=== PATIENT | male | born 1935 | race Caucasian/White ===

== ENCOUNTER → 2017-05-25 | Outpatient (CLI) | payer MEDICARE, OTHER ==
[~2017-05-25] MED LIST: ASPIR 8181 MG PO; ASPIRIN EC81 MG PO; AVODART0.5 MG PO; EYE DROPS OU; HYDROCHLOROTH12.5 MG PO; LATANOPROST 0.005% OU; LATANOPROST2.5 ML OP; LOSARTAN PO; LOSARTAN POTASS25 MG PO; MELOXICAM15 MG PO; MULTIVITAMINS PO; OXYBUTYNIN CHLOR5 MG PO; TAMSULOSIN HCL0.4 MG PO; TYLENOL WITH C1 EACH PO
--- NOTE | 2017-05-25 17:11 | Diagnostic Imaging Report ---
CORRECTION Corrected on: 05/25/2017; Dictated by: Marcelino Roberto M.D. on 05/25/2017 at 17:13 Electronically approved by: Marcelino Roberto M.D. on 05/25/2017 at 17:13 PROCEDURE:X-RAY ABDOMEN - KUB COMPARISON:[facility], DX, ABDOMEN-1VIEW (KUB), 10/21/2016, 8:05. INDICATIONS:CALCULUS OF KIDNEY FINDINGS: Nonobstructive bowel gas pattern. Stable 0.7 cm nonobstructing calculus in the superior pole of the right kidney. Stable cluster of calcific densities projecting in the inferior pole of the left kidney. No other radiopaque densities project over the renal shadows, expected course of the ureters or bladder. Stable pelvic vascular calcifications. No acute bony abnormalities. CONCLUSION: Stable bilateral nonobstructive renal stone burden. Marcelino Roberto M.D. Dictated by: Marcelino Roberto M.D. on 05/25/2017 at 17:11 Electronically approved by: Marcelino Roberto M.D. on 05/25/2017 at 17:11
== END ==
LOC: RAD 14:26
PROVIDERS: ATTEND Urology
DX: N20.0 Calculus of kidney (principal)
CPT/HCPCS: 74018

== ENCOUNTER → 2017-09-21 | Outpatient (CLI) | payer MEDICARE, OTHER ==
--- NOTE | 2017-09-21 15:21 | Diagnostic Imaging Report ---
PROCEDURE:X-RAY ABDOMEN - KUB COMPARISON:[facility], DX, ABDOMEN-1VIEW (KUB), 05/25/2017, 14:33. INDICATIONS:CALCULUS OF KIDNEY FINDINGS: There is a non-obstructed bowel-gas pattern. Stable 7 mm radiopaque density projecting over the superior to mid aspect of the right renal shadow. Stable cluster of calcific densities projecting in the inferior pole of the left renal shadow. No other radiopaque densities project over the renal shadows, expected course of ureters or bladder. Stable pelvic vascular calcifications. No acute bony abnormalities. CONCLUSION: Stable bilateral, nonobstructing renal stone burden Marcelino Roberto M.D. Dictated by: Marcelino Roberto M.D. on 09/21/2017 at 15:25 Electronically approved by: Marcelino Roberto M.D. on 09/21/2017 at 15:25
== END ==
LOC: RAD 14:34
PROVIDERS: ATTEND Urology
DX: N20.0 Calculus of kidney (principal)
CPT/HCPCS: 74018

== ENCOUNTER → 2018-01-29 | Outpatient (CLI) | payer MEDICARE, OTHER ==
--- NOTE | 2018-01-29 10:47 | Diagnostic Imaging Report ---
PROCEDURE:X-RAY ABDOMEN - KUB COMPARISON:KUB 09/21/17. INDICATIONS:CALCULUS OF KIDNEY FINDINGS: Stable 7 mm radiopaque density projecting over the superior to mid aspect of the right renal shadow. Stable cluster of calcific densities projecting in the inferior pole of the left renal shadow. No other calcifications project over the kidneys, expected ureteral course, or bladder. Stable pelvic phleboliths. Non obstructive bowel gas pattern. No acute bony abnormalities. CONCLUSION: Similar appearance of bilateral renal stones. Dictated by: JOLENE OLIVAS M.D. on 01/29/2018 at 10:56 Electronically approved by: JOLENE OLIVAS M.D. on 01/29/2018 at 10:56
== END ==
LOC: RAD 09:58
PROVIDERS: ATTEND Urology
DX: N20.0 Calculus of kidney (principal)
CPT/HCPCS: 74018

== ENCOUNTER → 2018-05-31 | Outpatient (CLI) | payer MEDICARE, OTHER ==
--- NOTE | 2018-05-31 17:21 | Diagnostic Imaging Report ---
Abdomen, two views dated 05/31/2018. History: Renal stones. Comparison: Not available Findings: A 7 mm stone overlies the right kidney. Several stones overlie the lower pole of the left kidney with the largest measuring 8.1 mm. The intestinal gas pattern is nonobstructive. There no masses. The osseous structures reveal mild degenerative change and osteopenia. IMPRESSION: Bilateral renal lithiasis. Signed by: Dr. Jamarcus Toth DO on 05/31/2018 5:18 PM
== END ==
LOC: RAD 14:43
PROVIDERS: ATTEND Urology
DX: N20.0 Calculus of kidney (principal)
CPT/HCPCS: 74018

== ENCOUNTER → 2018-07-03 | Day surgery (SDC) | payer MEDICARE, OTHER ==
[2018-06-28 15:46] LABS: BASOPHILS # (AUTO) 0.1 (0.0-0.1); BASOPHILS % 0.8 % (0.0-1.0); EOSINOPHILS # (AUTO) 0.2 (0.0-0.4); EOSINOPHILS % 2.2 % (0.0-6.0); HEMATOCRIT 43.3 % (38.2-49.6); HEMOGLOBIN 14.5 g/dL (14.0-18.0); LYMPHOCYTES # (AUTO) 2.5 (1.0-3.2); LYMPHOCYTES % 28.1 % (18.0-39.1); MEAN CORPUSCULAR HEMOGLOBIN 31.9 pg (28-32); MEAN CORPUSCULAR HGB CONC 33.5 g/dL (31-35); MEAN CORPUSCULAR VOLUME 95.2 fL (81-99); MONOCYTES # (AUTO) 1.1 (0.2-0.8); MONOCYTES % 11.9 % (4.4-11.3); NEUTROPHILS % 56.5 % (38.7-80.0); PLATELET COUNT 254 x10e3/uL (140-360); RED BLOOD COUNT 4.55 x10e6/uL (4.3-5.7)
--- NOTE | 2018-06-28 16:10 | Diagnostic Imaging Report ---
EXAMINATION: CHEST 2 VIEWS INDICATION: Preop. Chest pain. Stones. ^PER PROTOCOL ^[id number] ^1540 ^PRE ADMIT COMPARISON: None FINDINGS: TUBES and LINES: None. LUNGS: Lungs are well inflated. Lungs are clear. There is no evidence of pneumonia or pulmonary edema. PLEURA: No pleural effusion or pneumothorax. HEART AND MEDIASTINUM: The cardiomediastinal silhouette is unremarkable. BONES AND SOFT TISSUES: No acute osseous lesion. Soft tissues are unremarkable. UPPER ABDOMEN: No free air under the diaphragm. IMPRESSION: No acute thoracic abnormality. Signed by: Dr. Jason Mancuso M.D. on 06/28/2018 4:07 PM
[~2018-07-03] MED LIST changes: +AMLODIPINE BESYL5 MG PO; +BELLADONNA/OPIUM 60 MG SUPP PR ONE; +IOPAMIDOL 610MG/1ML 300 MG/ML VIAL IV ONE; +LIDOCAINE HCL 2% LOCAL INJ 5 ML SDV VIAL INJ ONE; +MIRALAX17 GM PO; +ONDANSETRON HCL INJ 2MG/ML 2ML 2 MG/ML VIAL ONE; +PIPER-TAZ 3.375 GM 50 ML ONE; +PROPOFOL IV EMULSION 10 MG/ML 20 ML VIAL ONE; +SEVOFLURANE INHAL SOLN 250 ML PEN BTL ONE; +VIT B12 PO; +VIT D PO; +VIT K2 PO
--- OUTSIDE RECORDS SUMMARY | 2018-07-03 05:14 | XMS REPORT | Clinical Summary ---
Author Author [facility] Address Unknown Phone Unavailable Care Team Providers Care Speed Belt Sander Tender Name Role Phone Tony Muñoz MD PCP Allergies Not on File Medications Not on file Active Problems Not on file Encounters Care Team Description Date Type Specialty Tony Muñoz MD Abdominal aortic aneurysm without rupture (HCC) 01/02/2018 Hospital Radiology Encounter Tony Muñoz MD Abdominal aortic aneurysm without rupture (HCC) (Primary Dx) 12/30/2017 Outside Orders Central Scheduling after 07/02/2017 Social History Date Tobacco Use Types Packs/Day Years Used Never Assessed Sex Assigned at Date Recorded Not on file Industry Job Start Date Occupation Not on file Not on file Not on file Travel End Travel History Travel Start No recent travel history available. Last Filed Vital Signs Not on file Plan of Treatment Not on file Procedures Comments Procedure Name Priority Date/Time Associated Diagnosis CT/CTA ABDOMEN & PELVIS Routine 01/02/2018 3:03 PM CDT POCT-CREATININE Routine 01/02/2018 2:33 PM CDT after 07/02/2017 Results * CTA abdomen & pelvis (01/02/2018 3:03 PM CDT) Narrative Performed At Addendum Begins [facility] REPORT STATUS:A Addendum: I reviewed the nonvascular findings and concur with Dr. Pardo's report. A 12 mm low-density lesion is noted in the lower pole of the right kidney that has characteristics consistent with a cyst. Signed: Kenny Baltazar MD Report Verified Date/Time:01/02/2018 16:59:41 Reading Location: [place] [address] Angio Body Reading Room Addendum Ends FINAL REPORT CT angiography of the abdominal aorta and pelvic arteries, 02 January 2018 INDICATION: This is a 82 year old male with abdominal aortic aneurysm presents for assessment. This study is performed in an attempt to avoid an invasive procedure. TECHNIQUE: Spiral acquisition before and during intravenous contrast administration using a GE multidetector CT scanner. Images were obtained before and during the dynamic passage of intravenous contrast material.Multi-planar 3-D volume-rendering reconstruction was performed using an independent workstation interactively by the interpreting physician as well as the 3-D specialist for optimal visualisation the abdominal aorta, pelvic arteries, and its proximal branches. Please refer to the contrast sheet scanned in the EPIC system for the amount and route of contrast given. This exam was performed according to our departmental dose-optimisation programme, which includes automated exposure control, adjustment of the mA and/or kV according to patient size and/or use of iterative reconstruction technique. Dose modulation, iterative reconstruction, and/or weight based adjustment of the mA/kV was utilized to reduce the radiation dose to as low as reasonably achievable. FINDINGS: VASCULAR: Calcification is seen at the aortic root, where visualised. In the descending thoracic aorta combination of calcific and noncalcific atherosclerosis is identified. In the distal descending thoracic aorta, the thickness of the noncalcific atheroma is at least 8 mm, image 44. Regarding the infrarenal abdominal aorta, the mesenteric level as combination of calcific and noncalcific atherosclerosis identified. The thickness of the noncalcific atheroma is approximately 6 mm at image 106. In the infrarenal abdominal aorta, mild aneurysmal dilation is identified, with associated atherosclerotic ulceration, representing a spectrum of underlying atherosclerosis. By multiplanar reformation, the maximum diameter is approximately 3.5 x 3.4 cm. The length of the aneurysmal dilation is at most 5 cm, and terminates at least 3 cm above the aortic bifurcation, and commences approximately 3 cm below the right renal artery. There is no evidence of acute aortic pathology, specifically, there is no dissection, intramural hematoma, or contained rupture. Quantitative dimensions of the abdominal aorta are as follows: 2.5 cm at the mesenteric segment; 2.3 cm at the renal segment; 3.5 x 3.4 cm at the mid infrarenal level; and 1.5 cm at the aortic bifurcation. 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 Similarly, severe stenosis/subtotal occlusion is seen at the proximal 3 to 4 cm of the SMA, however, remainder of the SMA as well as the hepatic and splenic arteries are enhanced by contrast indicating reconstitution by surrounding collaterals. Acuity of this finding is uncertain. Correlate clinically. The ERIC is prominent, thereby providing collateral levels to the more superior mesenteric arteries and measure up to 5 mm in diameter. Single left and right renal arteries identified. The left renal artery has eccentric nonobstructive calcific atherosclerosis identified. There is substantial calcific atherosclerosis seen at the takeoff of the left right renal artery, making accurate assessment limited. Remainder of the right renal artery is to be widely patent The common iliac arteries, bilaterally, are remarkable for calcific atherosclerosis, more so at the proximal left common iliac artery, at image 203. By multiplanar reformation, the minimum luminal diameter at this level is approximately 2.3 x 6.8 mm, that may suggest a moderate lesion. Thereafter, the remainder of the common iliac, external iliac, common femoral, and the visualised superficial femoral arteries are widely patent with only eccentric nonobstructive calcific atherosclerosis identified. NON-VASCULAR: The lung bases are unremarkable. Some dependent changes are identified. Atelectatic changes are seen in the right base, for example at image 45 of the left lower lobe. In the abdomen, the liver and spleen appears unremarkable. The liver edge is smooth. No abnormal enhancing structure is identified. The adrenal glands are not enlarged. The gallbladder and the pancreas is not remarkable. No acute renal pathology is seen and no hydronephrosis or perirenal fluid collections identified. Bilateral cortical scarring is noted. Renal cyst is identified in the lateral aspect of the right kidney, with no enhancement after contrast ministration indicating simple in nature. It measures 5.7 x 7.4 cm in diameter. A smaller cyst is also identified inferiorly. Bowel is not well assessed by CT angiography as enteric contrast is not given. No obvious bowel dilation is identified. Bilateral fat-containing inguinal hernia is identified. The prostate is prominent with calcification identified. The bladder appears unremarkable. No significant retroperitoneal adenopathy is identified.No free air free fluid seen in the abdomen and pelvis. No acute bony pathology is identified. Tiny sclerotic focus is identified in the left pelvic level, image 284, representing a bone island. CONCLUSIONS: 1.An infra-renal abdominal aortic aneurysm with maximum diameter of 3.5 x 3.4 cm is present as described above. There is no evidence of acute aortic pathology, specifically, there is no dissection, intramural hematoma, or contained rupture. In addition, in the descending thoracic aorta, protruding noncalcific atherosclerotic plaque is identified, furthermore, atherosclerotic ulceration is identified in the infrarenal abdominal aorta, for example in the proximal infrarenal level indicating a spectrum of underlying atherosclerosis. Quantitative dimension of the abdominal aorta are as noted. 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 The ERIC is widely patent. Status of the renal arteries as described above. 3.Other findings as described above. 4.An addendum will be dictated regarding the non-vascular findings by the [employer] Radiologists. Signed: Hossein Pardo MD Report Verified Date/Time:01/02/2018 15:31:50 Reading Location: [place] [address] Cardiology MRI Procedure Note Interface, External Ris In - 01/02/2018 5:01 PM CDT Addendum Begins REPORT STATUS:A Addendum: I reviewed the nonvascular findings and concur with Dr. Pardo's report. A 12 mm low-density lesion is noted in the lower pole of the right kidney that has characteristics consistent with a cyst. Signed: Kenny Baltazar MD Report Verified Date/Time: 01/02/2018 16:59:41 Reading Location: [place] [address] Angio Body Reading Room Addendum Ends FINAL REPORT CT angiography of the abdominal aorta and pelvic arteries, 02 January 2018 INDICATION: This is a 82 year old male with abdominal aortic aneurysm presents for assessment. This study is performed in an attempt to avoid an invasive procedure. TECHNIQUE: Spiral acquisition before and during intravenous contrast administration using a [employer] multidetector CT scanner. Images were obtained before and during the dynamic passage of intravenous contrast material. Multi-planar 3-D volume-rendering reconstruction was performed using an independent workstation interactively by the interpreting physician as well as the 3-D specialist for optimal visualisation the abdominal aorta, pelvic arteries, and its proximal branches. Please refer to the contrast sheet scanned in the EPIC system for the amount and route of contrast given. This exam was performed according to our departmental dose-optimisation programme, which includes automated exposure control, adjustment of the mA and/or kV according to patient size and/or use of iterative reconstruction technique. Dose modulation, iterative reconstruction, and/or weight based adjustment of the mA/kV was utilized to reduce the radiation dose to as low as reasonably achievable. FINDINGS: VASCULAR: Calcification is seen at the aortic root, where visualised. In the descending thoracic aorta combination of calcific and noncalcific atherosclerosis is identified. In the distal descending thoracic aorta, the thickness of the noncalcific atheroma is at least 8 mm, image 44. Regarding the infrarenal abdominal aorta, the mesenteric level as combination of calcific and noncalcific atherosclerosis identified. The thickness of the noncalcific atheroma is approximately 6 mm at image 106. In the infrarenal abdominal aorta, mild aneurysmal dilation is identified, with associated atherosclerotic ulceration, representing a spectrum of underlying atherosclerosis. By multiplanar reformation, the maximum diameter is approximately 3.5 x 3.4 cm. The length of the aneurysmal dilation is at most 5 cm, and terminates at least 3 cm above the aortic bifurcation, and commences approximately 3 cm below the right renal artery. There is no evidence of acute aortic pathology, specifically, there is no dissection, intramural hematoma, or contained rupture. Quantitative dimensions of the abdominal aorta are as follows: 2.5 cm at the mesenteric segment; 2.3 cm at the renal segment; 3.5 x 3.4 cm at the mid infrarenal level; and 1.5 cm at the aortic bifurcation. 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 Similarly, severe stenosis/subtotal occlusion is seen at the proximal 3 to 4 cm of the SMA, however, remainder of the SMA as well as the hepatic and splenic arteries are enhanced by contrast indicating reconstitution by surrounding collaterals. Acuity of this finding is uncertain. Correlate clinically. The ERIC is prominent, thereby providing collateral levels to the more superior mesenteric arteries and measure up to 5 mm in diameter. Single left and right renal arteries identified. The left renal artery has eccentric nonobstructive calcific atherosclerosis identified. There is substantial calcific atherosclerosis seen at the takeoff of the left right renal artery, making accurate assessment limited. Remainder of the right renal artery is to be widely patent The common iliac arteries, bilaterally, are remarkable for calcific atherosclerosis, more so at the proximal left common iliac artery, at image 203. By multiplanar reformation, the minimum luminal diameter at this level is approximately 2.3 x 6.8 mm, that may suggest a moderate lesion. Thereafter, the remainder of the common iliac, external iliac, common femoral, and the visualised superficial femoral arteries are widely patent with only eccentric nonobstructive calcific atherosclerosis identified. NON-VASCULAR: The lung bases are unremarkable. Some dependent changes are identified. Atelectatic changes are seen in the right base, for example at image 45 of the left lower lobe. In the abdomen, the liver and spleen appears unremarkable. The liver edge is smooth. No abnormal enhancing structure is identified. The adrenal glands are not enlarged. The gallbladder and the pancreas is not remarkable. No acute renal pathology is seen and no hydronephrosis or perirenal fluid collections identified. Bilateral cortical scarring is noted. Renal cyst is identified in the lateral aspect of the right kidney, with no enhancement after contrast ministration indicating simple in nature. It measures 5.7 x 7.4 cm in diameter. A smaller cyst is also identified inferiorly. Bowel is not well assessed by CT angiography as enteric contrast is not given. No obvious bowel dilation is identified. Bilateral fat-containing inguinal hernia is identified. The prostate is prominent with calcification identified. The bladder appears unremarkable. No significant retroperitoneal adenopathy is identified. No free air free fluid seen in the abdomen and pelvis. No acute bony pathology is identified. Tiny sclerotic focus is identified in the left pelvic level, image 284, representing a bone island. CONCLUSIONS: 1. An infra-renal abdominal aortic aneurysm with maximum diameter of 3.5 x 3.4 cm is present as described above. There is no evidence of acute aortic pathology, specifically, there is no dissection, intramural hematoma, or contained rupture. In addition, in the descending thoracic aorta, protruding noncalcific atherosclerotic plaque is identified, furthermore, atherosclerotic ulceration is identified in the infrarenal abdominal aorta, for example in the proximal infrarenal level indicating a spectrum of underlying atherosclerosis. Quantitative dimension of the abdominal aorta are as noted. 2. 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 The ERIC is widely patent. Status of the renal arteries as described above. 3. Other findings as described above. 4. An addendum will be dictated regarding the non-vascular findings by the [employer] Radiologists. Signed: Hossein Pardo MD Report Verified Date/Time: 01/02/2018 15:31:50 Reading Location: [facility] [address] Cardiology MRI Performing Organization Address City/State/Zipcode Phone Number GE [facility] * POC-Creatinine (01/02/2018 2:33 PM CDT) POC-Creatinine 1.1Comment: TESTED AT [facility] 0.6 - 1.3 mg/dL [facility] [address] [facility] [address] POC-EGFR 64 mL/min/1.73M2 [facility] Specimen Blood Performing Organization Address City/State/Zipcode Phone Number [facility] [address] [place] [address] [facility] after 07/02/2017 Insurance Payer Benefit Subscriber ID Type Phone Address Plan / Group MEDICARE MEDICARE A xxxxxxxxxxx Medicare B CIGNA - COMMERCIAL CIGNA xxxxxxxxxx Comm INDEMNITY
--- OUTSIDE RECORDS SUMMARY | 2018-07-03 05:16 | XMS REPORT ---
Author Author Tony Muñoz [facility] eClinicalWorks Address Unknown Phone Unavailable Care Team Providers Care Nurse Sane Name Role Phone Tony Muñoz Unavailable Allergies, Adverse Reactions, Alerts Substance Reaction Event Type N.K.D.A. Info Not Available Non Drug Allergy Encounters Encounter Location Date f/u review [place]. July 10, 2013 3 MTH FU/[facility] [place]. 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 Medications Medication Code System Code Instructions Start Date End Date Status Dosage Lisinopril-Hydrochlorothiazide [facility] [address]-67 10-12.5 MG Orally Once a day Active 1 tablet Atorvastatin Calcium [facility] 55164213390 20 Orally Once a day Active 1 tablet Latanoprost [facility] [address]-29 0.005 % Ophthalmic Once a day Active 1 drop into affected eye in the evening ASA Unknown 0 Oral Active 1 tab DiphenhydrAMINE HCl [facility] [address]-60 2 % Externally Three times a day October 16, 2013 Active as directed MethylPREDNISolone (Eugenio) MED[facility]AN [address]-13 4 mg Orally as directed October 16, 2013 Active as directed Social History Social History Element Qualifiers Date Reported Tobacco Use: . Are you a: current smoker October 16, 2013 Do you drink alcohol? . Status: No October 16, 2013 Family history Qualifier Description Comment Date Reported Father brain cancer October 16, 2013 Vital Signs Date/Time: October 16, 2013 Blood Pressure Systolic 128 mm Hg Height 65 in Weight 168.8 lbs Cardiac Monitoring Heart Rate 71 /min Temperature 98.0 F Blood Pressure Diastolic 70 mm Hg Summary Purpose eClinicalWorks Submission
--- OUTSIDE RECORDS SUMMARY | 2018-07-03 05:16 | XMS REPORT ---
Author Author Tony Muñoz [facility] eClinicalWorks Address Unknown Phone Unavailable Care Team Providers Care Porcelain Buildup Assistant Name Role Phone Tony Muñoz Unavailable Encounters Encounter Location Date Unknown [facility]. Dec 31, 2013 f/u review BW and DI [facility]. July 10, 2013 3 MTH FU/BLWK [facility]. October 16, 2013 Unknown [facility]. 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 Are you a: former smoker, Yes, Year Quit 2013Dec 31, 2013 Do you drink alcohol? . Status: No Dec 31, 2013 Summary Purpose eClinicalWorks Submission
--- OUTSIDE RECORDS SUMMARY | 2018-07-03 05:16 | XMS REPORT ---
Author Author Tony Muñoz Organization [employer] Address Unknown Phone Unavailable Care Team Providers Care Database Software Technician Name Role Phone Tony Muñoz CP Unavailable Allergies, Adverse Reactions, Alerts Substance Reaction Event Type Statin Myalgia Non Drug Allergy Problems Problem Type Condition Code Onset Dates Condition Status Problem Orthostatic hypotension 458.0 Active Problem Prostate cancer 185 Active Problem Elevated blood sugar 790.29 Active Problem Other hyperlipidemia E78.4 Active Problem Essential (primary) hypertension I10 Active Problem Benign prostatic hyperplasia without lower urinary tract symptoms N40.0 Active Problem Annual visit for general adult medical examination with abnormal findings Z00.01 Active Problem Malignant neoplasm of prostate C61 Active Problem Atherosclerosis of aorta I70.0 Active Problem Hyperglycemia, unspecified R73.9 Active Assessment History of tobacco use Z87.891 Active Assessment Screening for abdominal aortic aneurysm Z13.6 Active Assessment Atherosclerosis of aorta I70.0 Active Problem Essential hypertension, benign 401.1 Active Problem 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 Active Assessment Essential (primary) hypertension I10 Active Problem Other and unspecified hyperlipidemia 272.4 Active Problem Abdominal aneurysm without mention of rupture 441.4 Active Problem Other abnormal glucose 790.29 Active Medications Medication Code System Code Instructions Start Date End Date Status Dosage Amlodipine Besylate-Valsartan [facility] 50021365750 5-160 MG Orally Once a day Active 1 tablet Losartan Potassium [facility] 54245842915 50 MG Orally Once a day Inactive 1 tablet Latanoprost [facility] 75448791716 0.005 % Ophthalmic Once a day Active 1 drop into affected eye in the evening Amlodipine Besylate [facility] 58894702665 2.5 MG Orally Once a day Inactive 1 tablet Vital Signs Date/Time: June 19, 2017 Blood Pressure Systolic 138 mm Hg Height 65 in Weight 171 lbs BMI 28.45 Index Cardiac Monitoring Heart Rate 62 /min Temperature 97.5 F Blood Pressure Diastolic 80 mm Hg Results No Known Results Summary Purpose [employer]Works Submission
--- OUTSIDE RECORDS SUMMARY | 2018-07-03 05:16 | XMS REPORT ---
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
--- OUTSIDE RECORDS SUMMARY | 2018-07-03 05:16 | XMS REPORT ---
Author Author Tony Muñoz [facility] e[employer] Address Unknown Phone Unavailable Care Team Providers Care Bank Officer Name Role Phone Tony Muñoz Unavailable Encounters Encounter Location Date Unknown [facility]. Dec 31, 2013 refill request for Losartan Potassium 25 [facility]. Feb 24, 2014 resend losaran request [facility]. Feb 24, 2014 f/u review BW and DI [facility]. July 10, 2013 3 MTH FU/BLWK [facility]. October 16, 2013 Unknown [facility]. 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 Are you a: former smoker, Yes, Year Quit 2013Dec 31, 2013 Do you drink alcohol? . Status: No Dec 31, 2013 Summary Purpose [employer]ClinicalWorks Submission
--- OUTSIDE RECORDS SUMMARY | 2018-07-03 05:16 | XMS REPORT ---
Author Author Tony Muñoz [facility] e[employer] Address Unknown Phone Unavailable Care Team Providers Care Manager Delivery Name Role Phone Tony Muñoz CP Unavailable Allergies, Adverse Reactions, Alerts Substance Reaction Event Type Statin Myalgia Non Drug Allergy Problems Problem Type Condition Code Onset Dates Condition Status Problem Other and unspecified hyperlipidemia 272.4 Active Assessment Screening for AAA (abdominal aortic aneurysm) Z13.6 Active Problem Other abnormal glucose 790.29 Active Assessment Encounter for general adult medical examination with abnormal findings Z00.01 Active Problem Orthostatic hypotension 458.0 Active Problem Prostate cancer 185 Active Problem Elevated blood sugar 790.29 Active Problem Other hyperlipidemia E78.4 Active Problem Essential (primary) hypertension I10 Active Assessment Benign prostatic hyperplasia without lower urinary tract symptoms N40.0 Active Assessment Other hyperlipidemia E78.4 Active Problem Benign prostatic hyperplasia without lower urinary tract symptoms N40.0 Active Assessment Malignant neoplasm of prostate C61 Active Problem Annual visit for general adult medical examination with abnormal findings Z00.01 Active Problem Malignant neoplasm of prostate C61 Active Problem Atherosclerosis of aorta I70.0 Active Problem Hyperglycemia, unspecified R73.9 Active Assessment History of smoking Z87.891 Active Assessment Stenosis of right carotid artery I65.21 Active Assessment Atherosclerosis of aorta I70.0 Active Assessment Hyperglycemia, unspecified R73.9 Active Problem Essential hypertension, benign 401.1 Active Problem 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 Active Assessment Essential (primary) hypertension I10 Active Problem Abdominal aneurysm without mention of rupture 441.4 Active Medications Medication Code System Code Instructions Start Date End Date Status Dosage Losartan Potassium ND 50898826230 50 MG Orally Once a day Active 1 tablet Latanoprost ND 04144901388 0.005 % Ophthalmic Once a day Active 1 drop into affected eye in the evening Amlodipine Besylate ND 79068413024 2.5 MG Orally Once a day Active 1 tablet Cheratussin AC [facility] 61085094711 100-10 MG/5ML Orally every 6 hrs Active 5 ml Medrol [facility] 86877370887 4 MG Orally as directed Active as directed Vital Signs Date/Time: May 25, 2017 Blood Pressure Systolic 158 mm Hg Height 65 in Weight 174 lbs BMI 28.95 Index Cardiac Monitoring Heart Rate 70 /min Temperature 97.7 F Blood Pressure Diastolic 88 mm Hg Results No Known Results Summary Purpose [employer]ClinicalWorks Submission
--- OUTSIDE RECORDS SUMMARY | 2018-07-03 05:16 | XMS REPORT ---
Author Author Tony Muñoz [facility] e[employer] Address Unknown Phone Unavailable Care Team Providers Care Television And Radio Repairer Name Role Phone Tony Muñoz Unavailable Allergies, Adverse Reactions, Alerts Substance Reaction Event Type Statin Myalgia Non Drug Allergy Encounters Encounter Location Date Unknown [facility]. Dec 31, 2013 refill request for Losartan Potassium 25 [facility]. Feb 24, 2014 resend losaran request [facility]. Feb 24, 2014 lab orders [facility]. Mar 12, 2014 f/u review BW and DI [facility]. July 10, 2013 3 MTH FU/BLWK [facility]. October 16, 2013 Unknown [facility]. Dec 27, 2013 ear wash [facility]. Dec 31, 2013 lab orders [facility]. Mar 24, 2014 ISSUES [facility]. Dec 26, 2013 3 Month F/U [facility]. July 02, 2014 3 Month F/U [facility]. October 01, 2014 BW f/u high a1c [facility]. Apr 02, 2014 Unknown [facility]. 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 Active Assessment Essential hypertension, benign 401.1 Active Assessment Prostate cancer 185 Active Problem Elevated blood sugar 790.29 Active Problem Orthostatic hypotension 458.0 Active Problem Prostate cancer 185 Active Problem Abdominal aneurysm without mention of rupture 441.4 Active Problem Other abnormal glucose 790.29 Active Problem Essential hypertension, benign 401.1 Active Problem Other and unspecified hyperlipidemia 272.4 Active Medications Medication Code System Code Instructions Start Date End Date Status Dosage ASA Unknown 0 Oral Active 1 tab Latanoprost [facility] [address]-04 0.005 % Ophthalmic Once a day Active 1 drop into affected eye in the evening Losartan Potassium [facility] 13961676013 25 Orally Once a day Active 1 tablet Social History Social History Element Qualifiers Date Reported Tobacco Use: . Are you a: former smoker, Yes, Year Quit 2013October 01, 2014 Do you drink alcohol? . Status: No October 01, 2014 Vital Signs Date/Time: October 01, 2014 Blood Pressure Systolic 130 mm Hg Height 65 in Weight 170 lbs Cardiac Monitoring Heart Rate 60 /min Temperature 98 F Blood Pressure Diastolic 72 mm Hg Summary Purpose eClinicalWorks Submission
--- OUTSIDE RECORDS SUMMARY | 2018-07-03 05:16 | XMS REPORT ---
Author Author Tony Muñoz [facility] eClinicalWorks Address Unknown Phone Unavailable Care Team Providers Care Executive Officer Special Warfare Team Name Role Phone Tony Muñoz Unavailable Allergies, Adverse Reactions, Alerts Substance Reaction Event Type Statin Myalgia Non Drug Allergy Problems Problem Type Condition Code Onset Dates Condition Status Problem Essential hypertension, benign 401.1 Active Problem Elevated blood sugar 790.29 Active Problem Orthostatic hypotension 458.0 Active Problem Annual visit for general adult medical examination with abnormal findings Z00.01 Active Problem Essential (primary) hypertension I10 Active Problem Other hyperlipidemia E78.4 Active Problem Atherosclerosis of aorta I70.0 Active Problem Prostate cancer 185 Active Problem Hyperglycemia, unspecified R73.9 Active Problem Malignant neoplasm of prostate C61 Active Assessment Bilateral impacted cerumen H61.23 Active Problem 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 Active Problem Other abnormal glucose 790.29 Active Assessment Acute bacterial conjunctivitis of left eye H10.32 Active Problem Abdominal aneurysm without mention of rupture 441.4 Active Assessment Acute non-recurrent maxillary sinusitis J01.00 Active Problem Other and unspecified hyperlipidemia 272.4 Active Medications Medication Code System Code Instructions Start Date End Date Status Dosage Anucort-HC [facility] [address]-88 25 MG Rectal Twice a day Active 1 suppository Flonase [facility] [address]-56 50 MCG/ACT Nasally twice a day August 02, 2016 Active 1 spray in each nostril Aspir-81 [facility] [address]-26 81 MG Orally Once a day Active 1 tablet Tamsulosin HCl [facility] [address]-06 0.4 MG Orally daily Active as directed Tobramycin [facility] [address]-04 0.3 % Ophthalmic 4 times a day August 02, 2016 Active 1 drop into affected eye Latanoprost [facility] [address]-93 0.005 % Ophthalmic Once a day Active 1 drop into affected eye in the evening Zithromax Z-Eugenio [facility] [address]-09 250 MG Orally Once a day August 02, 2016 Active 2 tablets on the first day, then 1 tablet daily for 4 days Losartan Potassium [facility] 39650810856 25 Active TAKE ONE TABLET BY MOUTH DAILY Vital Signs Date/Time: August 02, 2016 Blood Pressure Systolic 148 mm Hg Height 65 in Weight 170 lbs BMI 28.29 Index Cardiac Monitoring Heart Rate 75 /min Temperature 98.2 F Blood Pressure Diastolic 80 mm Hg Results No Known Results Summary Purpose eClinicalWorks Submission
--- OUTSIDE RECORDS SUMMARY | 2018-07-03 05:16 | XMS REPORT ---
Author Author Tony Muñoz [facility] eClinicalWorks Address Unknown Phone Unavailable Care Team Providers Care Conventional Mortgage Underwriter Name Role Phone Tony Muñoz Unavailable Encounters Encounter Location Date Unknown [facility]. Dec 31, 2013 f/u review BW and DI [facility]. July 10, 2013 3 MTH FU/BLWK [facility]. October 16, 2013 Unknown [facility]. 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 Are you a: former smoker, Yes, Year Quit 2013Dec 31, 2013 Do you drink alcohol? . Status: No Dec 31, 2013 Summary Purpose eClinicalWorks Submission
--- OUTSIDE RECORDS SUMMARY | 2018-07-03 05:16 | XMS REPORT ---
Author Author Tony Muñoz [facility] eClinicalWorks Address Unknown Phone Unavailable Care Team Providers Care Paving And Surfacing Labourer Name Role Phone Tony Muñoz Unavailable Allergies, Adverse Reactions, Alerts Substance Reaction Event Type Statin Myalgia Non Drug Allergy Problems Problem Type Condition Code Onset Dates Condition Status Problem Other abnormal glucose 790.29 Active Problem Elevated blood sugar 790.29 Active Problem Orthostatic hypotension 458.0 Active Problem Essential (primary) hypertension I10 Active Problem Atherosclerosis of aorta I70.0 Active Problem Other hyperlipidemia E78.4 Active Problem Malignant neoplasm of prostate C61 Active Problem Prostate cancer 185 Active Problem Hyperglycemia, unspecified R73.9 Active Problem Annual visit for general adult medical examination with abnormal findings Z00.01 Active Assessment Essential (primary) hypertension I10 Active Problem Abdominal aneurysm without mention of rupture 441.4 Active Problem Essential hypertension, benign 401.1 Active Assessment Viral infection B34.9 Active Problem 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 Active Assessment Cough R05 Active Problem Other and unspecified hyperlipidemia 272.4 Active Medications Medication Code System Code Instructions Start Date End Date Status Dosage Medrol [facility] 89097011046 4 MG Orally as directed Active as directed Latanoprost [facility] 23756640885 0.005 % Ophthalmic Once a day Active 1 drop into affected eye in the evening Flonase [facility] 55979975108 50 MCG/ACT Nasally twice a day August 02, 2016 Active 1 spray in each nostril Zithromax Z-Eugenio [facility] 58102892287 250 MG Orally Once a day August 02, 2016 Active 2 tablets on the first day, then 1 tablet daily for 4 days Losartan Potassium [facility] 29230591704 50 MG Orally Once a day Active 1 tablet Cheratussin AC [facility] 63073481387 100-10 MG/5ML Orally every 6 hrs Active 5 ml Tobramycin [facility] 37502664870 0.3 % Ophthalmic 4 times a day August 02, 2016 Active 1 drop into affected eye Vital Signs Date/Time: Apr 27, 2017 Blood Pressure Systolic 150 mm Hg Height 65 in Weight 173 lbs BMI 28.79 Index Cardiac Monitoring Heart Rate 75 /min Temperature 97.8 F Blood Pressure Diastolic 80 mm Hg Results No Known Results Summary Purpose eClinicalWorks Submission
--- OUTSIDE RECORDS SUMMARY | 2018-07-03 05:16 | XMS REPORT ---
Author Author Tony Muñoz Organization [employer] Address Unknown Phone Unavailable Care Team Providers Care Senior Software Test Engineer Name Role Phone Tony Muñoz Unavailable Allergies [...]
--- OUTSIDE RECORDS SUMMARY | 2018-07-03 05:16 | XMS REPORT ---
Author Author Tony Muñoz [facility] eClinicalWorks Address Unknown Phone Unavailable Care Team Providers Care Blasting Contract Miner Name Role Phone Tony Muñoz Unavailable Encounters Encounter Location Date f/u review BW and DI [facility]. 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 Active Assessment Abdominal aneurysm without mention of rupture 441.4 Active Assessment Other abnormal glucose 790.29 Active Assessment Atherosclerosis of aorta 440.0 Active Problem Other and unspecified hyperlipidemia 272.4 Active Problem Abdominal aneurysm without mention of rupture 441.4 Active Problem Essential hypertension, benign 401.1 Active Assessment Essential hypertension, benign 401.1 Active Assessment Other and unspecified hyperlipidemia 272.4 Active Problem Other abnormal glucose 790.29 Active Problem 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 Active Medications Medication Code System Code Instructions Start Date End Date Status Dosage Latanoprost [facility] [address]-25 0.005 % Ophthalmic Once a day Active 1 drop into affected eye in the evening Lisinopril-Hydrochlorothiazide [facility] [address]-73 10-12.5 MG Orally Once a day Active 1 tablet Atorvastatin Calcium [facility] [address]-12 20 mg Orally Once a day July 10, 2013 Active 1 tablet Social History Social History Element Qualifiers Date Reported Tobacco Use: . Are you a: current smoker July 10, 2013 Do you drink alcohol? . Status: No July 10, 2013 Family history Qualifier Description Comment Date Reported Father brain cancer July 10, 2013 Vital Signs Date/Time: July 10, 2013 Blood Pressure Systolic 120 mm Hg Height 65 inches Weight 164 lbs Cardiac Monitoring Heart Rate 70 Beats per Minute Temperature 97.5 F Blood Pressure Diastolic 64 mm Hg Results Carotid artery Doppler US Summary Purpose eClinicalWorks Submission
--- OUTSIDE RECORDS SUMMARY | 2018-07-03 05:16 | XMS REPORT ---
Author Author Tony Muñoz Organization [employer] Address Unknown Phone Unavailable Care Team Providers Care Teacher Industrial Arts Name Role Phone Tony Muñoz CP Unavailable Allergies No Known Allergies Problems Problem [...] Date End Date Status Dosage Amlodipine Besylate-Valsartan [facility] 15948508027 5-160 MG Orally Once a day Inactive 1 tablet Amlodipine Besylate [facility] 93676515470 5 MG Orally Once a day Nov 14, 2017 Active 1 tablet Losartan Potassium [facility] 53626900047 50 MG Orally Once a day Nov 14, 2017 Active 1 tablet Results No Known Results Summary Purpose eClinicalWorks Submission
--- OUTSIDE RECORDS SUMMARY | 2018-07-03 05:16 | XMS REPORT ---
Author Author Tony Muñoz Organization [employer] Address Unknown Phone Unavailable Care Team Providers Care Snuff Maker Name Role Phone Tony Muñoz Unavailable Allergies [...] Instructions Start Date End Date Status Dosage Lipitor [facility] 83810223323 10 MG Orally Once a day June 23, 2017 Active 1 tablet Results No Known Results Summary Purpose eClinicalWorks Submission
--- OUTSIDE RECORDS SUMMARY | 2018-07-03 05:16 | XMS REPORT | Continuity of Care Document ---
Author Author [facility] Interface Address Unknown Phone Unavailable Problems Problem Status Onset Date Classification Date Reported Comments Source Essential hypertension, benign Active Problem 12/29/2017 [facility] Elevated blood sugar Active Problem 12/29/2017 [facility] Orthostatic hypotension Active Problem 12/29/2017 [facility] Essential hypertension Active Problem 12/29/2017 [facility] Other hyperlipidemia Active Problem 12/29/2017 [facility] Atherosclerosis of aorta Active Problem 12/29/2017 [facility] Prostate cancer Active Problem 12/29/2017 [facility] Hyperglycemia, unspecified Active Problem 12/29/2017 [facility] Malignant neoplasm of prostate Active Problem 12/29/2017 [facility] Bilateral impacted cerumen Active Diagnosis 09/19/2016 [facility] Nondependent tobacco use disorder Active Problem 12/29/2017 [facility] Other abnormal glucose Active Problem 12/29/2017 [facility] Acute bacterial conjunctivitis of left eye Active Diagnosis 09/19/2016 [facility] Abdominal aneurysm without mention of rupture Active Problem 12/29/2017 [facility] Acute non-recurrent maxillary sinusitis Active Diagnosis 09/19/2016 [facility] Other and unspecified hyperlipidemia Active Problem 12/29/2017 [facility] Benign prostatic hyperplasia without lower urinary tract symptoms Active Problem 12/29/2017 [facility] Screening for AAA Active Diagnosis 06/15/2017 [facility] Encounter for general adult medical examination with abnormal findings Active Diagnosis 06/15/2017 [facility] History of smoking Active Diagnosis 06/15/2017 [facility] Stenosis of right carotid artery Active Diagnosis 06/15/2017 [facility] Viral infection Active Diagnosis 05/18/2017 [facility] Cough Active Diagnosis 05/18/2017 [facility] History of tobacco use Active Diagnosis 09/19/2017 [facility] Screening for abdominal aortic aneurysm Active Diagnosis 09/19/2017 [facility] Dizziness Active Diagnosis 04/03/2014 [facility] Myalgia Active Diagnosis 04/03/2014 [facility] Cerumen impaction Active Diagnosis 04/03/2014 [facility] Atherosclerosis of aorta Active Diagnosis 07/18/2013 [facility] High calcium levels Active Diagnosis 01/07/2014 [facility] Hypercalcemia Active Diagnosis 01/07/2014 [facility] Bee sting Active Diagnosis 10/26/2013 [facility] URI Active Diagnosis 08/23/2015 [facility] UTI Active Diagnosis 08/23/2015 [facility] Excessive cerumen in both ear canals Active Diagnosis 08/27/2015 [facility] Impacted cerumen of left ear Active Diagnosis 08/27/2015 [facility] Other abnormal glucose Active Diagnosis 04/04/2015 [facility] BPH Active Diagnosis 01/06/2016 [facility] Abdominal bloating Active Diagnosis 01/06/2016 [facility] Prostatitis Active Diagnosis 03/01/2016 [facility] Hemorrhoids Active Diagnosis 03/01/2016 [facility] Medications Medication Details Route Status Patient Instructions Ordering Provider Order Date Source Amlodipine Besylate 1 tablet Orally Active 5 MG Orally Once a day [facility] 11/14/2017 [facility] Losartan Potassium 1 tablet Orally Active 50 MG Orally Once a day [facility] 11/14/2017 [facility] Lipitor 1 tablet Orally Active 10 MG Orally Once a day [facility] 06/23/2017 [facility] Flonase 1 spray in each nostril Nasally Active 50 MCG/ACT Nasally twice a day [facility] 08/02/2016 [facility] Tobramycin 1 drop into affected eye Ophthalmic Active 0.3 % Ophthalmic 4 times a day [facility] 08/02/2016 [facility] Zithromax Z-Eugenio 2 tablets on the first day, then 1 tablet daily for 4 days Orally Active 250 MG Orally Once a day [facility] 08/02/2016 [facility] Flonase 1 spray in each nostril Nasally Active 50 MCG/ACT Nasally twice a day [facility] 08/02/2016 [facility] Zithromax Z-Eugenio 2 tablets on the first day, then 1 tablet daily for 4 days Orally Active 250 MG Orally Once a day [facility] 08/02/2016 [facility] Tobramycin 1 drop into affected eye Ophthalmic Active 0.3 % Ophthalmic 4 times a day [facility] 08/02/2016 [facility] Losartan Potassium 1 tablet Orally Active 25 Orally Once a day [facility] 08/10/2015 [facility] Cipro 1 tablet Orally Active 500 mg Orally Twice a day [facility] 08/03/2015 [facility] DiphenhydrAMINE HCl as directed Externally Active 2 % Externally Three times a day [facility] 10/16/2013 [facility] MethylPREDNISolone (Eugenio) as directed Orally Active 4 mg Orally as directed [facility] 10/16/2013 [facility] Atorvastatin Calcium 1 tablet Orally Active 20 mg Orally Once a day [facility] 07/10/2013 [facility] Anucort-HC 1 suppository Rectal Active 25 MG Rectal Twice a day [facility] Aspir-81 1 tablet Orally Active 81 MG Orally Once a day [facility] Tamsulosin HCl as directed Orally Active 0.4 MG Orally daily [facility] Latanoprost 1 drop into affected eye in the evening Ophthalmic Active 0.005 % Ophthalmic Once a day [facility] Losartan Potassium TAKE ONE TABLET BY MOUTH DAILY NA Active 25 [facility] Amlodipine Besylate-Valsartan 1 tablet Orally Active 5-160 MG Orally Once a day [facility] Losartan Potassium 1 tablet Orally Active 50 MG Orally Once a day [facility] Latanoprost 1 drop into affected eye in the evening Ophthalmic Active 0.005 % Ophthalmic Once a day [facility] Amlodipine Besylate 1 tablet Orally Active 2.5 MG Orally Once a day [facility] Cheratussin AC 5 ml Orally Active 100-10 MG/5ML Orally every 6 hrs [facility] Medrol as directed Orally Active 4 MG Orally as directed [facility] Lisinopril-Hydrochlorothiazide 1 tablet Orally Active 10-12.5 MG Orally Once a day [facility] Losartan Potassium 1 tablet Orally Active 25 Orally Once a day [facility] ASA 1 tab Oral Active Oral [facility] Atorvastatin Calcium 1 tablet Orally Active 20 Orally Once a day [facility] Allergies, Adverse Reactions, Alerts Substance Category Reaction Severity Reaction type Status Date Reported Comments Source N.K.D.A. Adverse Reaction Info Not Available Adverse Reaction Active 10/16/2013 [facility] Statin Adverse Reaction Myalgia Adverse Reaction Active 06/19/2017 [facility] Immunizations Immunization Date Given Site Status Last Updated Comments Source Results Order Name Results Value Reference Range Date Interpretation Comments Source Vital Signs Vital Sign Value Date Comments Source Systolic (mm Hg) 138 06/19/2017 [facility] Height 65 06/19/2017 [facility] Weight 171 06/19/2017 [facility] Heart Rate 62 06/19/2017 [facility] Temperature Oral (F) 97.5 F 06/19/2017 [facility] Diastolic (mm Hg) 80 06/19/2017 [facility] Systolic (mm Hg) 158 05/25/2017 [facility] Height 65 05/25/2017 [facility] Weight 174 05/25/2017 [facility] Heart Rate 70 05/25/2017 [facility] Temperature Oral (F) 97.7 F 05/25/2017 [facility] Diastolic (mm Hg) 88 05/25/2017 [facility] Systolic (mm Hg) 150 04/27/2017 [facility] Height 65 04/27/2017 [facility] Weight 173 04/27/2017 [facility] Heart Rate 75 04/27/2017 [facility] Temperature Oral (F) 97.8 F 04/27/2017 [facility] Diastolic (mm Hg) 80 04/27/2017 [facility] Systolic (mm Hg) 148 08/02/2016 [facility] Height 65 08/02/2016 [facility] Weight 170 08/02/2016 [facility] Heart Rate 75 08/02/2016 [facility] Temperature Oral (F) 98.2 F 08/02/2016 [facility] Diastolic (mm Hg) 80 08/02/2016 [facility] Systolic (mm Hg) 152 02/24/2016 [facility] Height 65 02/24/2016 [facility] Weight 175 02/24/2016 [facility] Heart Rate 63 02/24/2016 [facility] Temperature Oral (F) 97.5 F 02/24/2016 [facility] Diastolic (mm Hg) 80 02/24/2016 [facility] Systolic (mm Hg) 140 11/17/2015 [facility] Height 65 11/17/2015 [facility] Weight 173 11/17/2015 [facility] Heart Rate 66 11/17/2015 [facility] Temperature Oral (F) 97.9 F 11/17/2015 [facility] Diastolic (mm Hg) 90 11/17/2015 [facility] Systolic (mm Hg) 140 08/10/2015 [facility] Height 65 08/10/2015 [facility] Weight 166 08/10/2015 [facility] Heart Rate 70 08/10/2015 [facility] Temperature Oral (F) 98 F 08/10/2015 [facility] Diastolic (mm Hg) 90 08/10/2015 [facility] Systolic (mm Hg) 142 08/03/2015 [facility] Height 65 08/03/2015 [facility] Weight 167 08/03/2015 [facility] Heart Rate 48 08/03/2015 [facility] Temperature Oral (F) 98.3 F 08/03/2015 [facility] Diastolic (mm Hg) 70 08/03/2015 [facility] Systolic (mm Hg) 128 05/27/2015 [facility] Height 65 05/27/2015 [facility] Weight 171 05/27/2015 [facility] Heart Rate 64 05/27/2015 [facility] Temperature Oral (F) 97.6 F 05/27/2015 [facility] Diastolic (mm Hg) 86 05/27/2015 [facility] Systolic (mm Hg) 130 10/01/2014 [facility] Height 65 10/01/2014 [facility] Weight 170 10/01/2014 [facility] Heart Rate 60 10/01/2014 [facility] Temperature Oral (F) 98 F 10/01/2014 [facility] Diastolic (mm Hg) 72 10/01/2014 [facility] Systolic (mm Hg) 134 12/31/2013 [facility] Height 65 12/31/2013 [facility] Weight 172 12/31/2013 [facility] Heart Rate 62 12/31/2013 [facility] Temperature Oral (F) 98.1 F 12/31/2013 [facility] Diastolic (mm Hg) 68 12/31/2013 [facility] Systolic (mm Hg) 118 12/26/2013 [facility] Height 65 12/26/2013 [facility] Weight 168.4 12/26/2013 [facility] Heart Rate 63 12/26/2013 [facility] Temperature Oral (F) 98.5 F 12/26/2013 [facility] Diastolic (mm Hg) 58 12/26/2013 [facility] Systolic (mm Hg) 128 10/16/2013 [facility] Height 65 10/16/2013 [facility] Weight 168.8 10/16/2013 [facility] Heart Rate 71 10/16/2013 [facility] Temperature Oral (F) 98.0 F 10/16/2013 [facility] Diastolic (mm Hg) 70 10/16/2013 [facility] Systolic (mm Hg) 120 07/10/2013 [facility] Height 65 07/10/2013 [facility] Weight 164 07/10/2013 [facility] Heart Rate 70 07/10/2013 [facility] Temperature Oral (F) 97.5 F 07/10/2013 [facility] Diastolic (mm Hg) 64 07/10/2013 [facility] Encounters Location Location Details Encounter Type Encounter Number Reason For Visit Attending Provider ADM Date DC Date Status Source [facility]. f/u review BW and DI [id number] 07/10/2013 07/10/2013 [facility]. f/u review BW and DI [id number] 07/10/2013 07/10/2013 [facility], [facility]. f/u review BW and DI [id number] 07/10/2013 07/10/2013 [facility]. f/u review BW and DI [id number] 07/10/2013 07/10/2013 [facility], [facility]. f/u review BW and DI [id number] 07/10/2013 07/10/2013 [facility]. f/u review BW and DI [id number] 07/10/2013 07/10/2013 [facility], [facility]. f/u review BW and DI [id number] 07/10/2013 07/10/2013 [facility], [facility]. f/u review BW and DI [id number] 07/10/2013 07/10/2013 [facility], [facility]. f/u review BW and DI [id number] 07/10/2013 07/10/2013 [facility], [facility]. f/u review BW and DI [id number] 07/10/2013 07/10/2013 [facility], [facility]. f/u review BW and DI [id number] 07/10/2013 07/10/2013 [facility], [facility]. f/u review BW and DI [id number] 07/10/2013 07/10/2013 [facility], [facility]. f/u review BW and DI [id number] 07/10/2013 07/10/2013 [facility], [facility]. f/u review BW and DI [id number] 07/10/2013 07/10/2013 [facility], [facility]. f/u review BW and DI [id number] 07/10/2013 07/10/2013 [facility], [facility]. f/u review BW and DI [id number] 07/10/2013 07/10/2013 [facility] f/u review and DI [id number] 07/10/2013 07/10/2013 [facility] 3 MTH FU/BLWK [id number] 10/16/2013 10/16/2013 [facility] 3 MTH FU/BLWK [id number] 10/16/2013 10/16/2013 [facility] 3 MTH FU/BLWK [id number] 10/16/2013 10/16/2013 [facility] 3 MTH FU/BLWK [id number] 10/16/2013 10/16/2013 [facility] 3 MTH FU/BLWK [id number] 10/16/2013 10/16/2013 [facility] 3 MTH FU/BLWK [id number] 10/16/2013 10/16/2013 [facility] 3 MTH FU/BLWK [id number] 10/16/2013 10/16/2013 [facility] 3 MTH FU/BLWK [id number] 10/16/2013 10/16/2013 [facility] 3 MTH FU/BLWK [id number] 10/16/2013 10/16/2013 [facility] 3 MTH FU/BLWK [id number] 10/16/2013 10/16/2013 [facility] 3 MTH FU/BLWK [id number] 10/16/2013 10/16/2013 [facility] 3 MTH FU/BLWK [id number] 10/16/2013 10/16/2013 [facility] 3 MTH FU/BLWK [id number] 10/16/2013 10/16/2013 [facility] 3 MTH FU/BLWK [id number] 10/16/2013 10/16/2013 [facility] 3 MTH FU/BLWK [id number] 10/16/2013 10/16/2013 [facility] 3 MTH FU/BLWK [id number] 10/16/2013 10/16/2013 [facility] ISSUES [id number] 12/26/2013 12/26/2013 [facility] ISSUES [id number] 12/26/2013 12/26/2013 [facility] ISSUES [id number] 12/26/2013 12/26/2013 [facility], [facility]. ISSUES [id number] 12/26/2013 12/26/2013 [facility], [facility]. ISSUES [id number] 12/26/2013 12/26/2013 [facility], [facility]. ISSUES [id number] 12/26/2013 12/26/2013 [facility], [facility]. ISSUES [id number] 12/26/2013 12/26/2013 [facility], [facility]. ISSUES [id number] 12/26/2013 12/26/2013 [facility], [facility]. ISSUES [id number] 12/26/2013 12/26/2013 [facility], [facility]. ISSUES [id number] 12/26/2013 12/26/2013 [facility], [facility]. ISSUES [id number] 12/26/2013 12/26/2013 [facility], [facility]. Unknown [id number] 12/27/2013 12/27/2013 [facility], [facility]. Unknown [id number] 12/27/2013 12/27/2013 [facility], [facility]. Unknown [id number] 12/27/2013 12/27/2013 [facility] Unknown [id number] 12/27/2013 12/27/2013 [facility] Unknown [id number] 12/27/2013 12/27/2013 [facility] Unknown [id number] 12/27/2013 12/27/2013 [facility] Unknown [id number] 12/27/2013 12/27/2013 [facility] Unknown [id number] 12/27/2013 12/27/2013 [facility] Unknown [id number] 12/27/2013 12/27/2013 [facility] Unknown [id number] 12/27/2013 12/27/2013 [facility] Unknown [id number] 12/27/2013 12/27/2013 [facility] Unknown [id number] 12/27/2013 12/27/2013 [facility] Unknown [id number] 12/27/2013 12/27/2013 [facility] Unknown [id number] 12/27/2013 12/27/2013 [facility]. Unknown [id number] 12/27/2013 12/27/2013 [facility]. ear wash [id number] 12/31/2013 12/31/2013 [facility]. ear wash [id number] 12/31/2013 12/31/2013 [facility]. ear wash [id number] 12/31/2013 12/31/2013 [facility]. ear wash [id number] 12/31/2013 12/31/2013 [facility]. ear wash [id number] 12/31/2013 12/31/2013 [facility]. ear wash [id number] 12/31/2013 12/31/2013 [facility]. ear wash [id number] 12/31/2013 12/31/2013 [facility]. ear wash [id number] 12/31/2013 12/31/2013 [facility]. ear wash [id number] 12/31/2013 12/31/2013 [facility]. ear wash [id number] 12/31/2013 12/31/2013 [facility], [facility]. ear wash [id number] 12/31/2013 12/31/2013 [facility], [facility]. Unknown [id number] 12/31/2013 12/31/2013 [facility], [facility]. Unknown [id number] 12/31/2013 12/31/2013 [facility], [facility]. Unknown [id number] 12/31/2013 12/31/2013 [facility], [facility]. Unknown [id number] 12/31/2013 12/31/2013 [facility], [facility]. Unknown [id number] 12/31/2013 12/31/2013 [facility], [facility]. Unknown [id number] 12/31/2013 12/31/2013 [facility], [facility]. Unknown [id number] 12/31/2013 12/31/2013 [facility], [facility]. Unknown [id number] 12/31/2013 12/31/2013 [facility], [facility]. Unknown [id number] 12/31/2013 12/31/2013 [facility], [facility]. Unknown [id number] 12/31/2013 12/31/2013 [facility]. Unknown [id number] 12/31/2013 12/31/2013 [facility]. Unknown [id number] 12/31/2013 12/31/2013 [facility]. Unknown [id number] 12/31/2013 12/31/2013 [facility]. Unknown [id number] 12/31/2013 12/31/2013 [facility]. Unknown [id number] 12/31/2013 12/31/2013 [facility]. refill request for Losartan Potassium 25 [id number] 02/24/2014 02/24/2014 [facility]. refill request for Losartan Potassium 25 [id number] 02/24/2014 02/24/2014 [facility]. refill request for Losartan Potassium 25 [id number] 02/24/2014 02/24/2014 [facility]. refill request for Losartan Potassium 25 [id number] 02/24/2014 02/24/2014 [facility]. refill request for Losartan Potassium 25 [id number] 02/24/2014 02/24/2014 [facility]. refill request for Losartan Potassium 25 [id number] 02/24/2014 02/24/2014 [facility]. resend jayleenmian request [id number] 02/24/2014 02/24/2014 [facility]. resend fabi request [id number] 02/24/2014 02/24/2014 [facility]. resend fabi request [id number] 02/24/2014 02/24/2014 [facility] [id number] 02/24/2014 02/24/2014 [facility]. [facility] [id number] 02/24/2014 02/24/2014 [facility]. [facility] [id number] 02/24/2014 02/24/2014 [facility]. refill request for Losartan Potassium 25 [id number] 02/24/2014 02/24/2014 [facility]. refill request for Losartan Potassium 25 [id number] 02/24/2014 02/24/2014 [facility]. refill request for Losartan Potassium 25 [id number] 02/24/2014 02/24/2014 [facility]. refill request for Losartan Potassium 25 [id number] 02/24/2014 02/24/2014 [facility]. refill request for Losartan Potassium 25 [id number] 02/24/2014 02/24/2014 [facility]. refill request for Losartan Potassium 25 [id number] 02/24/2014 02/24/2014 [facility]. refill request for Losartan Potassium 25 [id number] 02/24/2014 02/24/2014 [facility]. resend fabi request [id number] 02/24/2014 02/24/2014 [facility]. resend fabi request [id number] 02/24/2014 02/24/2014 [facility]. resend fabi request [id number] 02/24/2014 02/24/2014 [facility]. resend fabi request [id number] 02/24/2014 02/24/2014 [facility]. resend fabi request [id number] 02/24/2014 02/24/2014 [facility]. resend fabi request [id number] 02/24/2014 02/24/2014 [facility], [facility]. resannabel mcmillan [id number] 02/24/2014 02/24/2014 [facility], [facility]. lab orders [id number] 03/12/2014 03/12/2014 [facility]. lab orders [id number] 03/12/2014 03/12/2014 [facility]. lab orders [id number] 03/12/2014 03/12/2014 [facility]. lab orders [id number] 03/12/2014 03/12/2014 [facility]. lab orders [id number] 03/12/2014 03/12/2014 [facility]. lab orders [id number] 03/12/2014 03/12/2014 [facility]. lab orders [id number] 03/12/2014 03/12/2014 [facility]. lab orders [id number] 03/12/2014 03/12/2014 [facility]. lab orders [id number] 03/12/2014 03/12/2014 [facility]. lab orders [id number] 03/12/2014 03/12/2014 [facility], [facility]. lab orders [id number] 03/12/2014 03/12/2014 [facility], [facility]. lab orders [id number] 03/24/2014 03/24/2014 [facility], [facility]. lab orders [id number] 03/24/2014 03/24/2014 [facility], [facility]. lab orders [id number] 03/24/2014 03/24/2014 [facility], [facility]. lab orders [id number] 03/24/2014 03/24/2014 [facility], [facility]. lab orders [id number] 03/24/2014 03/24/2014 [facility], [facility]. lab orders [id number] 03/24/2014 03/24/2014 [facility], [facility]. lab orders [id number] 03/24/2014 03/24/2014 [facility]. lab orders [id number] 03/24/2014 03/24/2014 [facility], [facility]. lab orders [id number] 03/24/2014 03/24/2014 [facility], [facility]. lab orders [id number] 03/24/2014 03/24/2014 [facility]. lab orders [id number] 03/24/2014 03/24/2014 [facility]. BW f/u high a1c [id number] 04/02/2014 04/02/2014 [facility]. BW f/u high a1c [id number] 04/02/2014 04/02/2014 [facility]. BW f/u high a1c [id number] 04/02/2014 04/02/2014 [facility]. BW f/u high a1c [id number] 04/02/2014 04/02/2014 [facility]. BW f/u high a1c [id number] 04/02/2014 04/02/2014 [facility]. BW f/u high a1c [id number] 04/02/2014 04/02/2014 [facility]. BW f/u high a1c [id number] 04/02/2014 04/02/2014 [facility]. BW f/u high a1c [id number] 04/02/2014 04/02/2014 [facility]. Unknown [id number] 06/25/2014 06/25/2014 [facility] Unknown [id number] 06/25/2014 06/25/2014 [facility] Unknown [id number] 06/25/2014 06/25/2014 [facility] Unknown [id number] 06/25/2014 06/25/2014 [facility] Unknown [id number] 06/25/2014 06/25/2014 [facility] Unknown [id number] 06/25/2014 06/25/2014 [facility] Unknown [id number] 06/25/2014 06/25/2014 [facility] Unknown [id number] 06/25/2014 06/25/2014 [facility] 3 Month F/U [id number] 07/02/2014 07/02/2014 [facility] 3 Month F/U [id number] 07/02/2014 07/02/2014 [facility] 3 Month F/U [id number] 07/02/2014 07/02/2014 [facility] 3 Month F/U [id number] 07/02/2014 07/02/2014 [facility] 3 Month F/U [id number] 07/02/2014 07/02/2014 [facility] 3 Month F/U [id number] 07/02/2014 07/02/2014 [facility] 3 Month F/U [id number] 07/02/2014 07/02/2014 [facility] 3 Month F/U [id number] 07/02/2014 07/02/2014 [facility] 3 Month F/U [id number] 10/01/2014 10/01/2014 [facility] 3 Month F/U [id number] 10/01/2014 10/01/2014 [facility] 3 Month F/U [id number] 10/01/2014 10/01/2014 [facility] 3 Month F/U [id number] 10/01/2014 10/01/2014 [facility] 3 Month F/U [id number] 10/01/2014 10/01/2014 [facility] 3 Month F/U [id number] 10/01/2014 10/01/2014 [facility], [facility]. 3 Month F/U [id number] 10/01/2014 10/01/2014 [facility]. 3 Month F/U [id number] 10/01/2014 10/01/2014 [facility]. lab orders [id number] 04/03/2015 04/03/2015 [facility]. lab orders [id number] 04/03/2015 04/03/2015 [facility]. lab orders [id number] 04/03/2015 04/03/2015 [facility]. lab orders [id number] 04/03/2015 04/03/2015 [facility]. lab orders [id number] 04/03/2015 04/03/2015 [facility]. lab orders [id number] 04/03/2015 04/03/2015 [facility]. lab orders [id number] 04/03/2015 04/03/2015 [facility]. right ear wash [id number] 05/27/2015 05/27/2015 [facility]. right ear wash [id number] 05/27/2015 05/27/2015 [facility]. right ear wash [id number] 05/27/2015 05/27/2015 [facility]. Refill [id number] 07/30/2015 07/30/2015 [facility]. Refill [id number] 07/30/2015 07/30/2015 [facility]. Refill [id number] 07/30/2015 07/30/2015 [facility]. Refill [id number] 07/30/2015 07/30/2015 [facility]. Refill [id number] 07/30/2015 07/30/2015 [facility]. Refill [id number] 07/30/2015 07/30/2015 [facility]. Sick Visit [id number] 08/03/2015 08/03/2015 [facility]. Sick Visit [id number] 08/03/2015 08/03/2015 [facility]. Sick Visit [id number] 08/03/2015 08/03/2015 [facility]. Sick Visit [id number] 08/03/2015 08/03/2015 [facility], [facility]. 1 week f;u [id number] 08/10/2015 08/10/2015 [facility], [facility]. 1 week f;u [id number] 08/10/2015 08/10/2015 [facility], [facility]. 1 week f;u [id number] 08/10/2015 08/10/2015 [facility], [facility]. 1 week f;u [id number] 08/10/2015 08/10/2015 [facility], [facility]. 1 week f;u [id number] 08/10/2015 08/10/2015 [facility], [facility]. stomach swelling [id number] 11/17/2015 11/17/2015 [facility]. stomach swelling [id number] 11/17/2015 11/17/2015 [facility], [facility]. f/u [id number] 02/24/2016 02/24/2016 [facility] Procedures Procedure Code Date Perfomer Comments Source
--- OUTSIDE RECORDS SUMMARY | 2018-07-03 05:17 | XMS REPORT ---
Author Author Tony Muñoz [facility] eClinicalWorks Address Unknown Phone Unavailable Care Team Providers Care Riveter Portable Machine Name Role Phone Tony Muñoz Unavailable Allergies, Adverse Reactions, Alerts Substance Reaction Event Type Statin Myalgia Non Drug Allergy Encounters Encounter Location Date Unknown [facility]. Dec 31, 2013 refill request for Losartan Potassium 25 [facility]. Feb 24, [address] [facility]. Feb 24, [address] [facility] Mar 12, 2014 f/u review BW and DI [facility]. July 10, 2013 3 MTH FU/BLWK [facility]. October 16, [address] [facility]. Dec 27, [address] [facility]. Dec 31, [address] [facility]. Mar 24, [address] [facility]. Dec 26, 2013 1 week f;u [facility]. August 10, [address] [facility]. August 03, [address] [facility]. Apr 03, [address] [facility]. July 30, 2015 3 Month F/U [facility]. July 02, 2014 3 Month F/U [facility]. October 01, 2014 BW f/u high a1c [facility]. Apr 02, [address] [facility]. June 25, [address] [facility]. May 27, 2015 Problems Problem Type Condition ICD-9 Code Onset [...] Malignant neoplasm of prostate C61 Active Assessment Essential (primary) hypertension I10 Active Problem 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 Active Problem Other abnormal glucose 790.29 Active Assessment Excessive cerumen in both ear canals H61.23 Active Problem Abdominal aneurysm without mention of rupture 441.4 Active Assessment Impacted cerumen of left ear H61.22 Active Problem Other and unspecified hyperlipidemia 272.4 Active Medications Medication Code System Code Instructions Start Date End Date Status Dosage Losartan Potassium [employer] 52582930730 25 Orally Once a day Active 1 tablet [facility] [address]-34 81 MG Orally Once a day Active 1 tablet Latanoprost [employer] [address]-65 0.005 % Ophthalmic Once a day Active 1 drop into affected eye in the evening Social History Social History Element Qualifiers Date Reported Tobacco Use: . Are you a: former smoker, Yes, Year Quit 2013August 10, 2015 Do you drink alcohol? . Status: No August 10, 2015 Family history Qualifier Description Comment Date Reported Maternal Grandmother Comment not available August 10, 2015 Paternal Grandmother Comment not available August 10, 2015 Siblings Comment not available August 10, 2015 Maternal Grandfather Comment not available August 10, 2015 Children Comment not available August 10, 2015 Father brain cancer August 10, 2015 Paternal Grandfather Comment not available August 10, 2015 Mother Comment not available August 10, 2015 Other: Comment not available August 10, 2015 Vital Signs Date/Time: May 27, 2015 Blood Pressure Systolic 128 mm Hg Height 65 in Weight 171 lbs Cardiac Monitoring Heart Rate 64 /min Temperature 97.6 F Blood Pressure Diastolic 86 mm Hg Summary Purpose eClinicalWorks Submission
--- OUTSIDE RECORDS SUMMARY | 2018-07-03 05:17 | XMS REPORT ---
Author Author Tony Muñoz [facility] e[employer] Address Unknown Phone Unavailable Care Team Providers Care Primer Charging Tool Setter Name Role Phone Tony Muñoz Unavailable Allergies, Adverse Reactions, Alerts Substance Reaction Event Type Statin Myalgia Non Drug Allergy Encounters Encounter Location Date Unknown [facility]. Dec 31, 2013 refill request for Losartan Potassium 25 [facility]. Feb 24, 2014 resend losaran request [facility]. Feb 24, 2014 lab orders [facility]. Mar 12, 2014 f/u review BW and DI [facility]. July 10, 2013 3 MTH FU/BLWK [facility]. October 16, 2013 Unknown [facility]. Dec 27, 2013 ear wash [facility]. Dec 31, 2013 lab orders [facility]. Mar 24, 2014 ISSUES [facility]. Dec 26, 2013 1 week f;u [facility]. August 10, 2015 Sick Visit [facility]. August 03, 2015 lab orders [facility]. Apr 03, 2015 Refill [facility]. July 30, 2015 3 Month F/U [facility]. July 02, 2014 3 Month F/U [facility]. October 01, 2014 BW f/u high a1c [facility]. Apr 02, 2014 Unknown [facility]. June 25, 2014 Problems Problem [...] Malignant neoplasm of prostate C61 Active Problem 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 Active Problem Other abnormal glucose 790.29 Active Assessment URI (upper respiratory infection) J06.9 Active Problem Abdominal aneurysm without mention of rupture 441.4 Active Assessment UTI (urinary tract infection) N39.0 Active Problem Other and unspecified hyperlipidemia 272.4 Active Medications Medication Code System Code Instructions Start Date End Date Status Dosage Aspir-81 [employer] [address]-67 81 MG Orally Once a day Active 1 tablet Cipro [employer] [address]-94 500 mg Orally Twice a day August 03, 2015 Active 1 tablet Latanoprost [employer] [address]-62 0.005 % Ophthalmic Once a day Active 1 drop into affected eye in the evening Losartan Potassium [employer] 25977300599 25 Orally Once a day Active 1 [...] available August 10, 2015 Vital Signs Date/Time: August 03, 2015 Blood Pressure Systolic 142 mm Hg Height 65 in Weight 167 lbs Cardiac Monitoring Heart Rate 48 /min Temperature 98.3 F Blood Pressure Diastolic 70 mm Hg Results CULTURE, URINE, ROUTINE Urine Dipstick COMPREHENSIVE METABOLIC PANEL Summary Purpose eClinicalWorks Submission
--- OUTSIDE RECORDS SUMMARY | 2018-07-03 05:17 | XMS REPORT ---
Author Author Tony Muñoz [facility] eClinicalWorks Address Unknown Phone Unavailable Care Team Providers Care Resawyer Name Role Phone Tony Muñoz Unavailable Encounters Encounter [facility] Date [facility] ISSUES [facility]. Dec 26, 2013 lab orders [facility]. Apr 03, 2015 3 Month F/U [facility]. July 02, 2014 3 Month F/U [facility]. October 01, 2014 BW f/u high a1c [facility]. Apr 02, 2014 Unknown [facility]. 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 Are you a: former smoker, Yes, Year Quit 2013October 01, 2014 Do you drink alcohol? . Status: No October 01, 2014 Summary Purpose eClinicalWorks Submission
--- OUTSIDE RECORDS SUMMARY | 2018-07-03 05:17 | XMS REPORT ---
Author Author Tony Muñoz [facility] eClinicalWorks Address Unknown Phone Unavailable Care Team Providers Care Business Mgr Name Role Phone Tony Muñoz Unavailable Allergies, Adverse Reactions, Alerts Substance Reaction Event Type Statin Myalgia Non Drug Allergy Encounters Encounter Location Date Unknown [facility]. Dec 31, 2013 refill request for Losartan Potassium 25 [facility]. Feb 24, 2014 resend losaran request [facility]. Feb 24, 2014 lab orders [facility]. Mar 12, 2014 f/u review BW and DI [facility]. July 10, 2013 3 MTH FU/BLWK [facility]. October 16, 2013 Unknown [facility]. Dec 27, 2013 ear wash [facility]. Dec 31, 2013 stomach swelling [facility]. Nov 17, 2015 lab orders [facility]. Mar 24, 2014 ISSUES [facility]. Dec 26, 2013 1 week f;u [facility]. August 10, 2015 Sick Visit [facility]. August 03, 2015 lab orders [facility]. Apr 03, 2015 Refill [facility]. July 30, 2015 3 Month F/U [facility]. July 02, 2014 3 Month F/U [facility]. October 01, 2014 BW f/u high a1c [facility]. Apr 02, 2014 Unknown [facility]. June 25, 2014 right ear wash [facility]. May 27, 2015 Problems Problem [...] Problem Other abnormal glucose 790.29 Active Assessment BPH (benign prostatic hyperplasia) N40.0 Active Problem Abdominal aneurysm without mention of rupture 441.4 Active Assessment Abdominal bloating R14.0 Active Problem Other and unspecified hyperlipidemia 272.4 Active Medications Medication Code System Code Instructions Start Date End Date Status Dosage Losartan Potassium [facility] 87292598383 25 Orally Once a day August 10, 2015 Active 1 tablet Tamsulosin HCl [facility] [address]-08 0.4 MG Orally daily Active as directed Aspir-81 [facility] [address]-99 81 MG Orally Once a day Active 1 tablet Latanoprost [facility] [address]-09 0.005 % Ophthalmic Once a day Active 1 drop into affected eye in the evening Cipro [facility] [address]-30 500 mg Orally Twice a day August 03, 2015 Active 1 tablet Social History Social History Element Qualifiers Date Reported Tobacco Use: . Are you a: former smoker, Yes, Year Quit 2013Nov 17, 2015 Do you drink alcohol? . Status: No Nov 17, 2015 Family history Qualifier Description Comment Date Reported Maternal Grandmother Comment not available Nov 17, 2015 Paternal Grandmother Comment not available Nov 17, 2015 Siblings Comment not available Nov 17, 2015 Maternal Grandfather Comment not available Nov 17, 2015 Children Comment not available Nov 17, 2015 Father brain cancer Nov 17, 2015 Paternal Grandfather Comment not available Nov 17, 2015 Mother Comment not available Nov 17, 2015 Other: Comment not available Nov 17, 2015 Vital Signs Date/Time: Nov 17, 2015 Blood Pressure Systolic 140 mm Hg Height 65 in Weight 173 lbs Cardiac Monitoring Heart Rate 66 /min Temperature 97.9 F Blood Pressure Diastolic 90 mm Hg Summary Purpose eClinicalWorks Submission
--- OUTSIDE RECORDS SUMMARY | 2018-07-03 05:17 | XMS REPORT ---
Author Author Tony Muñoz [facility] eClinicalWorks Address Unknown Phone Unavailable Care Team Providers Care Rn Appeals Name Role Phone Tony Muñoz Unavailable Allergies, Adverse Reactions, Alerts Substance Reaction Event Type Statin Myalgia Non Drug Allergy Encounters Encounter Location Date Unknown [facility]. Dec 31, 2013 refill request for Losartan Potassium 25 [facility]. Feb 24, 2014 resend losaran request [facility]. Feb 24, 2014 lab orders [facility]. Mar 12, 2014 f/u review BW and DI [facility]. July 10, 2013 3 MTH FU/BLWK [facility]. October 16, 2013 Unknown [facility]. Dec 27, 2013 ear wash [facility]. Dec 31, 2013 lab orders [facility]. Mar 24, 2014 ISSUES [facility]. Dec 26, 2013 1 week f;u [facility]. August 10, 2015 lab orders [facility]. Apr 03, 2015 Refill [facility]. July 30, 2015 3 Month F/U [facility]. July 02, 2014 3 Month F/U [facility]. October 01, 2014 BW f/u high a1c [facility]. Apr 02, 2014 Unknown [facility]. June 25, 2014 Problems Problem Type Condition [...] Problem Other abnormal glucose 790.29 Active Problem Abdominal aneurysm without mention of rupture 441.4 Active Assessment Prostatitis N41.9 Active Problem Other and unspecified hyperlipidemia 272.4 Active Medications Medication Code System Code Instructions Start Date End Date Status Dosage Latanoprost [employer] [address]-32 0.005 % Ophthalmic Once a day Active 1 drop into affected eye in the evening Aspir-81 [employer] [address]-92 81 MG Orally Once a day Active 1 tablet [facility] [address]-53 500 mg Orally Twice a day August 03, 2015 Active 1 tablet [facility]artan Pot[facility] 82469587870 25 Orally Once a day Active 1 [...] August 10, 2015 Vital Signs Date/Time: August 10, 2015 Blood Pressure Systolic 140 mm Hg Height 65 in Weight 166 lbs Cardiac Monitoring Heart Rate 70 /min Temperature 98 F Blood Pressure Diastolic 90 mm Hg Summary Purpose eClinicalWorks Submission
--- OUTSIDE RECORDS SUMMARY | 2018-07-03 05:17 | XMS REPORT ---
Author Author [facility] Address Unknown Phone Unavailable Care Team Providers Care Service Line Bus Cleaner Name Role Phone KELECHI ORTIZ Unavailable Unavailable AUBRIE SUTTON Unavailable Unavailable Problems This patient has no known problems. Allergies, Adverse Reactions, Alerts This patient has no known allergies or adverse reactions. Medications This patient has no known medications. Results Test Description Test Time Test Comments Text Results Atomic Results Result Comments CHEST 2 VIEWS 2018-06-28 16:06:[address] [address] Patient Name: CASSANDRA DUNN MR #: [id number] : 1935 Age/Sex: 83/M Req #: [id number] Adm Physician: Ordered by: KELECHI ORTIZ MD Report #: [id number] Location: OR Room/Bed: Procedure: [id number] DX/CHEST 2 VIEWS Exam Date: 06/28/18 Exam Time: 1540 REPORT STATUS: Signed EXAMINATION: CHEST 2 VIEWS INDICATION: Preop. C hest pain. Stones. PER PROTOCOL [id number] PRE ADMIT COMPARISON: None FINDINGS: TUBES and LINES: None. LUNGS: Lungs are well inflated. Lungs are clear. There is no evidence of pneumonia or pulmonary edema. PLEURA: No pleural effusion or pneumothorax. HEART AND MEDIASTINUM: The cardiomediastinal silhouette is unremarkable. BONES AND SOFT TISSUES: No acute osseous lesion. Soft tissues are unremarkable. UPPER ABDOMEN: No free air under the diaphragm. IMPRESSION: No acute thoracic abnormality. Signed by: Dr. Swati Mancuso M.D. on 06/28/2018 4:07 PM Dictated By: SWATI MANCUSO MD, MD 1607 Transcribed By: TROY on 06/28/18 1607 COPY TO: KELECHI ORTIZ MD ABDOMEN-1VIEW (KUB) 2018-05-31 17:16:00 [place] [address] Patient Name: CASSANDRA DUNN MR #: [id number] : 1935 Age/Sex: 83/M Req #: [id number] Adm Physician: Ordered by: KELECHI ORTIZ MD Report #: [id number] Location: [facility] Room/Bed: Procedure: [id number] DX/ABDOMEN-1VIEW (KUB) Exam Date: 05/31/18 Exam Time: 1443 REPORT STATUS: Signed Abdomen, two views dated 05/31/2018. History: Renal stones. Comparison: Not available Findings: A 7 mm stone overlies the right kidney. Several stones overlie the lower pole of the left kidney with the largest measuring 8.1 mm. The intestinal gas pattern is nonobstructive. There no masses. The osseous structures reveal mild degenerative change and osteopenia. IMPRESSION: Bilateral renal lithiasis. Signed by: Dr. Jamarcus Toth DO on 05/31/2018 5:18 PM Dictated By: JAMARCUS TOTH DO 1718 Transcribed By: TROY on 05/31/18 1718 COPY TO: KELECHI ORTIZ MD ABDOMEN-1VIEW (KUB) 2018-01-29 10:56:00 [place] [address] Patient Name: CASSANDRA DUNN MR #: [id number] : 1935 Age/Sex: 82/M Req #: [id number] Adm Physician: Ordered by: KELECHI ORTIZ MD Report #: [id number] Location: [facility] Room/Bed: Procedure: [id number] DX/ABDOMEN-1VIEW (KUB) Exam Date: Exam Time: REPORT STATUS: Signed PROCEDURE: X-RAY ABDOMEN - KUB COMPARISON: KUB 09/21/17. INDICATIONS: CALCULUS OF KIDNEY FINDINGS: Stable 7 mm radiopaque density projecting over the superior to mid aspect of the right renal shadow. Stable cluster of calcific densities projecting in the inferior pole of the left renal shadow. No other calcifications project over the kidneys, expected ureteral course, or bladder. Stable pelvic phleboliths. Non obstructive bowel gas pattern. No acute bony abnormalities. CONCLUSION: Similar appearance of bilateral renal stones. Dictated by: JOLENE OLIVAS M.D. on 01/29/2018 at 10:56 Electronically approved by: JOLENE OLIVAS M.D. on 01/29/2018 at 10:56 Dictated By: JOLENE OLIVAS MD 1056 Transcribed By: JOSIE on 01/29/18 1056 COPY TO: KELECHI ORTIZ MD CT, CTA ABDOMEN 2018-01-02 16:59:00 Addendum BeginsREPORT STATUS:A Addendum: I reviewed the nonvascular findings and concur with Dr. Pardo's report. A 12 mm low-density lesion is noted in the lower pole of the r ight kidney that has characteristics consistent with a cyst. Signed: Michael Baltazar MDReport Verified Date/Time: 01/02/2018 16:59:41 Reading Location: [place] [address] Angio Body Reading RoomAddendum EndsFINAL REPORT CT angiography of the abdominal aorta and pelvic arteries, 02 January 2018 INDICATION: This is a 82 year old male with abdominal aortic aneurysm presents for assessment. This study is performed in an attempt to avoid an invasive procedure. TECHNIQUE: Spiral acquisition before and during intravenous contrast administration using a Baeta multidetector CT scanner. Images were obtained before [...] thoracic aorta combination of calcific and noncalcific atheros clerosis is identified. In the distal descending thoracic [...] are seen in the right base, for e xample at image 45 of the left lower [...] dictated regarding the non-vascular findings by the [employer] Radiologists. Signed: Hossein Pardoeport Verified Date/Time: 01/02/2018 15:31:50 Reading Location: [place] [address] Cardiology MRI -CREATININE 2018-01-02 14:47:00 POC-CREATININE (CONNOR) (test rxnz=6350) 1.1 mg/dL 0.6-1.3 TESTED AT [facility] [address] [facility] [address] POC-EGFR (CONNOR) (test hiit=9530) 64 mL/min/1.73M2 ABDOMEN-1VIEW (KUB)2017-09-21 15:25:00 [place] [address] Patient Name: CASSANDRA DUNN MR #: [id number] : 1935 Age/Sex: 82/M Req #: [id number] Adm Physician: Ordered by: KELECHI ORTIZ MD Report #: [id number] Location: [facility] Room/Bed: Procedure: [id number] DX/ABDOMEN-1VIEW (KUB) Exam Da te: 09/21/17 Exam Time: 1500 REPORT STATUS: Sig marcin PROCEDURE: X-RAY ABDOMEN - KUB COMPARISON: [facility], DX, ABDOMEN-1VIEW (KUB), 05/25/2017, 14:33. INDICATIONS: CALCULUS OF KIDNEY FINDINGS: There is a non-obstructed bowel-gas pattern. Stable 7 mm radiopaque density projecting over the superior to mid aspect of the right renal shadow. Stable cluster of calcific densities projecting in the inferior pole of the left renal shadow. No other radiopaque densities proj ect over the renal shadows, expected course of ureters or bladder. Stable p elvic vascular calcifications. No acute bony abnormalities. CONCLUSION: Stable bilateral, nonobstructing renal stone burden Marcelino jeffers M.D. Dictated by: Marcelino Roberto M.D. on 09/21/2017 at 15:25 Electronically approved by: Marcelino Roberto M.D. on 09/21/2017 at 15:25 Dictated By: MARCELINO ROBERTO MD 1525 Transcribed By: JOSIE on 09/21/17 1525 COPY TO: KELECHI ORTIZ MD ABDOMEN-1VIEW (KUB) [place] [address] Patient Name: CASSANDRA DUNN MR #: [id number] : 1935 Age/Sex: 82/M Req #: [id number] Adm Physician: Ordered by: KELECHI ORTIZ MD Report #: [id number] Location: [facility] Room/Bed: Procedure: [id number] DX/ABDOMEN-1VIEW (KUB) Exam Da te: 05/25/17 Exam Time: 1433 REPORT STATUS: Sig marcin CORRECTION Corrected on: 05/25/2017; Dictated by: Marcelino Roberto M.D. on 05/25/2017 at 17:13 Electronically approved by: Marcelino toth M.D. on 05/25/2017 at 17:13 PROCEDURE: X-RAY ABDOMEN - KUB COMPARISON: [facility], DX, ABDOMEN-1VIEW (KUB), 10/21/2016, 8:05. INDICATIONS: CALCULUS OF KIDNEY FINDINGS: N onobstructive bowel gas pattern. Stable 0.7 cm nonobstructing calculus in the superior pole of the right kidney. Stable cluster of calcific densities pro jecting in the inferior pole of the left kidney. No other radiopaque densitie s project over the renal shadows, expected course of the ureters or bladder. Stable pelvic vascular calcifications. No acute bony abnormalities. CO NCLUSION: Stable bilateral nonobstructive renal stone burden. Marcelino Roberto M.D. Dictated by: Marcelino Roberto M.D. on 05/25/2017 at 17:11 Electronically approved by: Marcelino Roberto M.D. on 05/25/2017 at 17:11 Dictated By: MARCELINO ROBERTO MD Transcribed By: JOSIE on 05/25/171712 COPY TO: KELECHI ORTIZ MD
--- OUTSIDE RECORDS SUMMARY | 2018-07-03 05:17 | XMS REPORT ---
Author Author Tony Muñoz [facility] eClinicalWorks Address Unknown Phone Unavailable Care Team Providers Care Curb Worker Name Role Phone Tony Muñoz Unavailable Allergies, Adverse Reactions, Alerts Substance Reaction Event Type Statin Myalgia Non Drug Allergy Encounters Encounter Location Date Unknown [facility]. Dec 31, 2013 refill request for Losartan Potassium 25 [facility]. Feb 24, 2014 resend losaran request [facility]. Feb 24, 2014 lab orders [facility]. Mar 12, 2014 f/u review BW and DI [facility]. July 10, 2013 3 MTH FU/BLWK [facility]. October 16, 2013 Unknown [facility]. Dec 27, 2013 ear wash [facility]. Dec 31, 2013 lab orders [facility]. Mar 24, 2014 ISSUES [facility]. Dec 26, 2013 Problems Problem Type Condition ICD-9 Code Onset Dates Condition Status Assessment Cerumen impaction 380.4 Active Social History Social History Element Qualifiers Date Reported Tobacco Use: . Are you a: former smoker, Yes, Year Quit 2013Apr 02, 2014 Do you drink alcohol? . Status: No Apr 02, 2014 Vital Signs Date/Time: Dec 31, 2013 Blood Pressure Systolic 134 mm Hg Height 65 in Weight 172 lbs Cardiac Monitoring Heart Rate 62 /min Temperature 98.1 F Blood Pressure Diastolic 68 mm Hg Summary Purpose eClinicalWorks Submission
--- OUTSIDE RECORDS SUMMARY | 2018-07-03 05:17 | XMS REPORT ---
Author Author Tony Muñoz [facility] eClinicalWorks Address Unknown Phone Unavailable Care Team Providers Care Human Factors Advisor Lead Name Role Phone Tony Muñoz Unavailable Allergies, Adverse Reactions, Alerts Substance Reaction Event Type Statin Myalgia Non Drug Allergy Encounters Encounter Location Date Unknown [facility]. Dec 31, 2013 refill request for Losartan Potassium 25 [facility]. Feb 24, 2014 resend losaran request [facility]. Feb 24, 2014 lab orders [facility]. Mar 12, 2014 f/u review BW and DI [facility]. July 10, 2013 3 MTH FU/BLWK [facility]. October 16, 2013 Unknown [facility]. Dec 27, 2013 ear wash [facility]. Dec 31, 2013 lab orders [facility]. Mar 24, 2014 ISSUES [facility]. Dec 26, 2013 Problems Problem Type Condition ICD-9 Code Onset Dates Condition Status Assessment Essential hypertension, benign 401.1 Active Assessment Dizziness 780.4 Active Assessment Myalgia 729.1 Active Assessment Orthostatic hypotension 458.0 Active Assessment Cerumen impaction 380.4 Active Social History Social History Element Qualifiers Date Reported Tobacco Use: . Are you a: former smoker, Yes, Year Quit 2013Apr 02, 2014 Do you drink alcohol? . Status: No Apr 02, 2014 Vital Signs Date/Time: Dec 26, 2013 Blood Pressure Systolic 118 mm Hg Height 65 in Weight 168.4 lbs Cardiac Monitoring Heart Rate 63 /min Temperature 98.5 F Blood Pressure Diastolic 58 mm Hg Summary Purpose eClinicalWorks Submission
--- OUTSIDE RECORDS SUMMARY | 2018-07-03 05:17 | XMS REPORT ---
Author Author Tony Muñoz [facility] eClinicalWorks Address Unknown Phone Unavailable Care Team Providers Care Machine Heddle Cleaner Name Role Phone Tony Muñoz Unavailable Encounters Encounter Location Date Unknown [facility]. Dec 31, 2013 refill request for Losartan Potassium 25 [facility]. Feb 24, 2014 resend losaran request [facility]. Feb 24, 2014 lab orders [facility] Mar 12, 2014 f/u review BW and DI [facility]. July 10, 2013 3 MTH FU/BLWK [facility]. October 16, 2013 Unknown [facility]. Dec 27, 2013 ear wash [facility]. Dec 31, 2013 lab orders [facility]. Mar 24, 2014 ISSUES [facility]. Dec 26, 2013 Problems Problem Type Condition ICD-9 Code Onset Dates Condition Status Assessment Other abnormal glucose 790.29 Active Social History Social History Element Qualifiers Date Reported Tobacco Use: . Are you a: former smoker, Yes, Year Quit 2013Apr 02, 2014 Do you drink alcohol? . Status: No Apr 02, 2014 Summary Purpose eClinicalWorks Submission
--- OUTSIDE RECORDS SUMMARY | 2018-07-03 05:17 | XMS REPORT ---
Author Author Tony Muñoz [facility] eClinicalWorks Address Unknown Phone Unavailable Care Team Providers Care Jewelry Racker Name Role Phone Tony Muñoz Unavailable Allergies, Adverse Reactions, Alerts Substance Reaction Event Type Statin Myalgia Non Drug Allergy Encounters Encounter Location Date Unknown [facility]. Dec 31, 2013 refill request for Losartan Potassium 25 [facility]. Feb 24, 2014 resend losaran request [facility]. Feb 24, 2014 lab orders [facility]. Mar 12, 2014 f/u review BW and DI [facility]. July 10, 2013 3 MTH FU/BLWK [facility]. October 16, 2013 Unknown [facility]. Dec 27, 2013 ear wash [facility]. Dec 31, 2013 f/u [facility]. Feb 24, 2016 stomach swelling [facility]. Nov 17, 2015 lab orders [facility]. Mar 24, 2014 ISSUES [facility]. Dec 26, 2013 1 week f;u [facility]. August 10, 2015 Sick Visit [facility]. August 03, 2015 lab orders [facility]. Apr 03, 2015 Refill [facility]. July 30, 2015 3 Month F/U [facility]. July 02, 2014 3 Month F/U [facility]. October 01, 2014 BW f/u high a1c [facility]. Apr 02, 2014 Unknown [facility]. June 25, 2014 right ear wash [facility]. May 27, 2015 Problems Problem Type Condition [...] Problem Other abnormal glucose 790.29 Active Assessment Prostatitis N41.9 Active Problem Abdominal aneurysm without mention of rupture 441.4 Active Assessment Hemorrhoids K64.9 Active Problem Other and unspecified hyperlipidemia 272.4 Active Medications Medication Code System Code Instructions Start Date End Date Status Dosage Losartan Potassium [facility] 02262930022 25 Orally Once a day August 10, 2015 Active 1 tablet Aspir-[address] [facility] [address]-44 81 MG Orally Once a day Active 1 tablet [address]anop[address] [facility] [address]-08 0.005 % Ophthalmic Once a day Active 1 drop into affected eye in the evening [facility] [address]-91 25 MG Rectal Twice a day Active 1 suppository Tamsulosin HCl [facility] [address]-83 0.4 MG Orally daily Active as directed Social History Social History Element Qualifiers Date Reported Tobacco Use: . Are you a: former smoker, Yes, Year Quit 2013Feb 24, 2016 Do you drink alcohol? . Status: No Feb 24, 2016 Family history Qualifier Description Comment Date Reported Maternal Grandmother Comment not available Feb 24, 2016 Paternal Grandmother Comment not available Feb 24, 2016 Siblings Comment not available Feb 24, 2016 Maternal Grandfather Comment not available Feb 24, 2016 Children Comment not available Feb 24, 2016 Father brain cancer Feb 24, 2016 Paternal Grandfather Comment not available Feb 24, 2016 Mother Comment not available Feb 24, 2016 Other: Comment not available Feb 24, 2016 Vital Signs Date/Time: Feb 24, 2016 Blood Pressure Systolic 152 mm Hg Height 65 in Weight 175 lbs Cardiac Monitoring Heart Rate 63 /min Temperature 97.5 F Blood Pressure Diastolic 80 mm Hg Summary Purpose eClinicalWorks Submission
--- OUTSIDE RECORDS SUMMARY | 2018-07-03 05:17 | XMS REPORT ---
Author Author Tony Muñoz [facility] eClinicalWorks Address Unknown Phone Unavailable Care Team Providers Care Military Education Coordinator Name Role Phone Tony Muñoz Unavailable Encounters Encounter Location Date Unknown [facility]. Dec 31, 2013 refill request for Losartan Potassium [address] [facility]. Feb 24, 2014 resend losaran request [facility]. Feb 24, 2014 f/u review BW and DI [facility]. July 10, 2013 3 MTH FU/BLWK [facility]. October 16, [address] [facility]. Dec 27, 2013 Problems Problem Type [...] End Date Status Dosage Losartan Potassium [facility] 16859057856 25 Orally Once a day Active 1 tablet Social History Social History Element Qualifiers Date Reported Tobacco Use: . Are you a: former smoker, Yes, Year Quit 2013Dec 31, 2013 Do you drink alcohol? . Status: No Dec 31, 2013 Summary Purpose eClinicalWorks Submission
--- OUTSIDE RECORDS SUMMARY | 2018-07-03 05:17 | XMS REPORT ---
Author Author Tony Muñoz [facility] eClinicalWorks Address Unknown Phone Unavailable Care Team Providers Care Licensed Clinician Name Role Phone Tony Muñoz Unavailable Encounters Encounter Location Date Unknown [facility]. Dec 31, 2013 refill request for Losartan Potassium 25 [facility]. Feb 24, 2014 resend losaran request [facility]. Feb 24, 2014 lab orders [facility]. Mar 12, 2014 f/u review BW and DI [facility]. July 10, 2013 3 MTH FU/BLWK [facility]. October 16, 2013 Unknown [facility]. Dec 27, 2013 ear wash [facility]. Dec 31, 2013 lab orders [facility]. Mar 24, 2014 ISSUES [facility]. Dec 26, 2013 lab orders [facility]. Apr 03, 2015 Refill [facility]. July 30, 2015 3 Month F/U [facility]. July 02, 2014 3 Month F/U [facility]. October 01, 2014 BW f/u high a1c [facility]. Apr 02, 2014 Unknown [facility]. June 25, 2014 Problems Problem [...] Problem Other and unspecified hyperlipidemia 272.4 Active Social History Social History Element Qualifiers Date Reported Tobacco Use: . Are you a: former smoker, Yes, Year Quit 2013May 27, 2015 Do you drink alcohol? . Status: No May 27, 2015 Summary Purpose eClinicalWorks Submission
[2018-07-03 09:15] VITALS: BP 156/64
--- NOTE | 2018-08-02 05:36 | Operative Report ---
DATE OF PROCEDURE: 07/03/2018 SURGEON: Gee Lewis MD PREOPERATIVE DIAGNOSES: 1. Bilateral nephrolithiasis. 2. Urinary tract infections. POSTOPERATIVE DIAGNOSES: 1. Bilateral nephrolithiasis. 2. Urinary tract infections. 3. Cystolithiasis. 4. Bulbourethral stricture disease. OPERATION PERFORMED: Note, these were all staged procedures as part of a multi-stage and multi-step process in managing the patient's urolithiasis. 1. Left-sided extracorporeal shockwave lithotripsy (separate procedure performed for left nephrolithiasis). 2. Cystourethroscopy with calibration and dilation of bulbar urethral stricture (separate procedure performed for diagnosis of stricture). 3. Cystourethroscopy with bilateral ureteral catheterization and retrograde ureteropyelography (separate procedure performed to evaluate the upper tract in light of the urinary tract infections. 4. Cystolitholapaxy (separate procedure performed for the bladder stone). ANESTHESIA: General. COMPLICATIONS: None. CLINICAL SUMMARY: Marisol Kendall is an 83-year-old man, who has had a change with resection of the prostate. He has also had recurrent urolithiasis. He was brought for the above procedures. He is aware of the risks of bleeding, infection, injury to adjacent structures, need for additional procedures and elected to proceed. OPERATIVE PROCEDURE IN DETAIL: Informed consent was verified. Marisol Kendall was properly identified, taken to the operating room, placed on the lithotripsy table in supine position. Anesthesia was uneventfully begun. The patient's left 10 mm lower pole nephrolithiasis was localized with biplanar fluoroscopy. A total of 3000 shocks were delivered with fragmentation noted. The patient was carefully and gently repositioned in dorsal lithotomy position with all pressure points well padded. His genitalia were prepared and draped in usual sterile fashion. The cystoscope sheath with the visual obturator in place, was atraumatically inserted. The patient's urethra was guided down the unremarkable distal urethra to the bulbar region where there was blanching of the mucosa and a bulbourethral stricture. We gently dilated across the stricture to the level of the cystoscope sheath. We went through the normal sphincteric region, went through the prostate bed, which was status post transurethral resection of the prostate. We identified a bladder stone. This bladder stone was crushed with grasping forceps and was it extracted in several pieces. Next, a ureteral catheter was used to cannulate each ureter and retrograde ureteropyelograms were performed. Interpretation of retrograde ureteropyelography: Contrast was instilled in a retrograde fashion bilaterally. There were filling defects corresponding to the left-sided stone and presumed blood clots from the lithotripsy. There was no hydronephrosis. Unobstructed drainage was observed bilaterally fluoroscopically. We identified stones in the right hand side as well, but there was no hydronephrosis nor obstruction. The patient's bladder was drained. Cystoscope was withdrawn. Belladonna and opium suppository were placed. The patient was uneventfully reversed from anesthesia and taken to recovery room in stable condition. Explicit postop instructions were given. We will plan on returning the patient to the operating room for right ESWL. Gee Lewis MD [place]/MODL /[id number] cc: Gee Lewis MD
== END | disposition home or self-care (01) ==
LOC: OR 05:02
PROVIDERS: ATTEND Urology
DX: N20.0 Calculus of kidney (principal); N39.0 Urinary tract infection, site not specified; N21.0 Calculus in bladder; N35.912 Unspecified bulbous urethral stricture, male; I10 Essential (primary) hypertension; I71.4 Abdominal aortic aneurysm, without rupture; I65.29 Occlusion and stenosis of unspecified carotid artery; Z88.8 Allergy status to other drugs, medicaments and biological substances; Z01.810 Encounter for preprocedural cardiovascular examination; Z01.812 Encounter for preprocedural laboratory examination; Z01.818 Encounter for other preprocedural examination; Z98.890 Other specified postprocedural states; Z85.46 Personal history of malignant neoplasm of prostate
CPT/HCPCS: 36415; 50590; 52317; 71046; 85025; 88300; 93005; C1758; J2001; J2405; J2543; J2704; Q9967

== ENCOUNTER → 2018-08-17 | Day surgery (SDC) | payer MEDICARE, OTHER ==
[2018-08-13 13:49] LABS: BASOPHILS # (AUTO) 0.1 (0.0-0.1); EOSINOPHILS # (AUTO) 0.2 (0.0-0.4); EOSINOPHILS % 1.8 % (0.0-6.0); HEMATOCRIT 45.4 % (38.2-49.6); HEMOGLOBIN 15.4 g/dL (14.0-18.0); LYMPHOCYTES # (AUTO) 1.9 (1.0-3.2); LYMPHOCYTES % 20.6 % (18.0-39.1); MEAN CORPUSCULAR HEMOGLOBIN 31.8 pg (28-32); MEAN CORPUSCULAR HGB CONC 33.9 g/dL (31-35); MEAN CORPUSCULAR VOLUME 93.6 fL (81-99); MONOCYTES % 11.6 % (4.4-11.3); NEUTROPHILS # (AUTO) 5.8 (2.1-6.9); NEUTROPHILS % 64.7 % (38.7-80.0); PLATELET COUNT 241 x10e3/uL (140-360); RED BLOOD COUNT 4.85 x10e6/uL (4.3-5.7); RED CELL DISTRIBUTION WIDTH 13.2 % (11.7-14.4)
[~2018-08-17] MED LIST changes: -BELLADONNA/OPIUM 60 MG SUPP PR ONE; +CEFTRIAXONE SOD 1 GM/NS 50 ML 50 ML IV ONE; +DEXAMETHASONE SOD PHOS INJ 4 MG/ML VIAL ONE; -IOPAMIDOL 610MG/1ML 300 MG/ML VIAL IV ONE; -PIPER-TAZ 3.375 GM 50 ML ONE
--- OUTSIDE RECORDS SUMMARY | 2018-08-17 07:06 | XMS REPORT | Clinical Summary ---
Author Author JOSE [facility] Address Unknown Phone Unavailable Care Team Providers Care Chemical Operations Specialist Name Role Phone Tony Muñoz MD PCP Allergies Not on File Medications Not on file Active Problems Not on file Encounters Care Team Description Date Type Specialty Tony Muñoz MD Abdominal aortic aneurysm without rupture (HCC) 01/02/2018 Hospital Radiology Encounter Tony Muñoz MD Abdominal aortic aneurysm without rupture (HCC) (Primary Dx) 12/30/2017 Outside Orders Central Scheduling after 08/16/2017 Social History Date Tobacco Use Types Packs/Day [...] POCT-CREATININE Routine 01/02/2018 2:33 PM CDT after 08/16/2017 Results * CTA abdomen & pelvis (01/02/2018 3:03 PM CDT) Specimen Narrative Performed At Addendum Begins GE RIS REPORT STATUS:A Addendum: I reviewed the nonvascular findings and concur with Dr. Pardo's report. A 12 mm low-density lesion is noted in the lower pole of the right kidney that has characteristics consistent with a cyst. Signed: Kenny Baltazar MD Report Verified Date/Time:01/02/2018 16:59:41 Reading Location: [place] [address] Angio Body Reading Room Addendum Ends FINAL REPORT CT angiography of the abdominal aorta and pelvic arteries, 02 January 2018 INDICATION: This is a 82 year old male with abdominal aortic aneurysm presents for assessment. This study is performed in an attempt to avoid an invasive procedure. TECHNIQUE: Spiral acquisition before and during intravenous contrast administration using a Huixiaoer multidetector CT scanner. Images were obtained before [...] dictated regarding the non-vascular findings by the After [employer] Program Teacher Radiologists. Signed: Hossein Pardo MD Report Verified Date/Time:01/02/2018 15:31:50 Reading Location: [place] [address] Cardiology MRI Procedure Note Interface, External Ris In - 01/02/2018 5:01 PM CDT Addendum Begins REPORT STATUS:A Addendum: I reviewed the nonvascular findings and concur with Dr. Pardo's report. A 12 mm low-density lesion is noted in the lower pole of the right kidney that has characteristics consistent with a cyst. Signed: Kenny Baltazar MD Report Verified Date/Time: 01/02/2018 16:59:41 Reading Location: [place] [address] Angio Body Reading Room Addendum Ends FINAL [...] to the contrast sheet scanned in the [employer] system for the amount and route of [...] dictated regarding the non-vascular findings by the [employer] Teacher Radiologists. Signed: Hossein Pardo MD Report Verified Date/Time: 01/02/2018 15:31:50 Reading Location: [facility] [address] Cardiology MRI Performing Organization Address City/State/Zipcode Phone Number GE RIS * POC-Creatinine (01/02/2018 2:33 PM CDT) POC-Creatinine 1.1Comment: TESTED AT [facility] 0.6 - 1.3 mg/dL [facility] [address] [facility] [address] POC-EGFR 64 mL/min/1.73M2 [facility] Specimen Blood Performing Organization Address City/State/Zipcode Phone Number [facility] [address] [place] [address] [facility] after 08/16/2017 Insurance Payer Benefit Subscriber ID Type Phone Address Plan / Group MEDICARE MEDICARE A xxxxxxxxxxx Medicare B CIGNA - COMMERCIAL CIGNA xxxxxxxxxx Comm INDEMNITY
--- NOTE | 2018-08-17 08:14 | Diagnostic Imaging Report ---
Exam: Abdominal film Clinical History: Renal stones Comparison: 05/31/2018 DISCUSSION: Bilateral renal calculi are again noted. Cluster of calculi projecting over the left lower pole measures 8 mm in aggregate dimension. Right upper pole calculus also measures 8 mm. No calcifications project over the expected ureteral courses. Multiple pelvic phleboliths and atherosclerotic pelvic vascular calcifications. Regional skeletal structures are intact. Degenerative arthrosis of the hips and degenerative disc changes of the lumbar spine. Bowel gas pattern is nonobstructive. IMPRESSION: Bilateral nephrolithiasis, grossly unchanged relative to 05/31/2018. Signed by: Dr. William Conrad M.D. on 08/17/2018 8:11 AM
[2018-08-17 10:50] VITALS: BP 149/65
--- NOTE | 2018-10-03 06:11 | Operative Report ---
DATE OF PROCEDURE: 08/17/2018 SURGEON: Gee Lewis MD PREOPERATIVE DIAGNOSIS: Right nephrolithiasis. POSTOPERATIVE DIAGNOSIS: Right nephrolithiasis. OPERATION PERFORMED: 1. Staged right-sided extracorporeal shockwave lithotripsy. 2. Supervision of fluoroscopy, no radiologist present. ANESTHESIA: General. COMPLICATIONS: None. CLINICAL SUMMARY: Marisol Kendall is an 83-year-old man with recurrent urolithiasis, is brought for staged procedure. He is aware of the risks of bleeding, infection, injury to adjacent structures, need for additional procedures, and elected to proceed. OPERATIVE PROCEDURE IN DETAIL: Informed consent was verified. Marisol Kendall was properly identified, taken to the operating room, and placed on the lithotripsy table in supine position. Anesthesia was uneventfully begun. The patient's 8 mm diameter stone burden in the right lower calyx was localized with biplanar fluoroscopy. A total of 3000 shocks were delivered with fragmentation noted. The patient was then uneventfully reversed from anesthesia and taken to recovery room in stable condition. There were no complications to the procedure. He tolerated the procedure well. Explicit postop instructions were given. We will plan on following the patient up in the office. We will of course follow the patient up in the future with additional imaging as well as ongoing urological monitoring. Gee Lewis MD [place]/MODL /[id number]
== END | disposition home or self-care (01) ==
LOC: OR 06:58
PROVIDERS: ATTEND Urology
DX: N20.0 Calculus of kidney (principal); I71.4 Abdominal aortic aneurysm, without rupture; R03.0 Elevated blood-pressure reading, without diagnosis of hypertension; Z88.8 Allergy status to other drugs, medicaments and biological substances; Z01.812 Encounter for preprocedural laboratory examination; Z87.891 Personal history of nicotine dependence
CPT/HCPCS: 36415; 50590; 74018; 85025; J0696; J1100; J2001; J2405; J2704

== ENCOUNTER → 2018-09-06 | Outpatient (CLI) | payer MEDICARE, OTHER ==
[~2018-09-06] MED LIST changes: -CEFTRIAXONE SOD 1 GM/NS 50 ML 50 ML IV ONE; -DEXAMETHASONE SOD PHOS INJ 4 MG/ML VIAL ONE; -LIDOCAINE HCL 2% LOCAL INJ 5 ML SDV VIAL INJ ONE; -ONDANSETRON HCL INJ 2MG/ML 2ML 2 MG/ML VIAL ONE; -PROPOFOL IV EMULSION 10 MG/ML 20 ML VIAL ONE; -SEVOFLURANE INHAL SOLN 250 ML PEN BTL ONE
--- NOTE | 2018-09-06 16:54 | Diagnostic Imaging Report ---
EXAM: ABDOMEN-1VIEW (KUB) DATE: 09/06/2018 2:55 PM INDICATION: ^[id number] ^[id number] ^CALCULUS OF KIDNEY COMPARISON: KUB, 08/17/2018 FINDINGS: 2 supine views of the abdomen show normal distribution of air in the small and large bowel. Again noted is an 8 mm calcification projected on the upper right kidney, and a group of calcifications with overall measurement of 8 mm projected on the lower pole left kidney. No other calcifications are projected on the kidneys or ureters although small calcifications might be obscured by overlying bowel or bone. Again noted is a small calcification projected on the right side of the bladder, likely phlebolith. No acute bony abnormality. IMPRESSION: 1. No bowel dilatation or evidence for obstruction. 2. 8mm calcifications projected on the kidneys, stable appearance from prior exam. Signed by: Dr. Shakir Fishman M.D. on 09/06/2018 4:50 PM
== END ==
LOC: RAD 14:47
PROVIDERS: ATTEND Urology
DX: N20.0 Calculus of kidney (principal)
CPT/HCPCS: 74018

== ENCOUNTER → 2018-12-19 | Outpatient (CLI) | payer MEDICARE, OTHER ==
--- NOTE | 2018-12-19 11:56 | Diagnostic Imaging Report ---
Exam: KUB - 2 views Indication: Renal calculi Comparison: Multiple prior KUBs most recently of 09/06/2018 Findings: Right upper pole renal calculus measures up to 8 mm. Cluster of left lower pole renal calculi, the largest of which measures up to 5 mm. Nonobstructive bowel gas pattern. No free air. Generative changes of the visualized spine. Left iliac vascular stent. Mild degenerative changes of both hip joints. Impression: Unchanged bilateral renal calculi as above. No new radiographically apparent renal calculi. Signed by: Adrián Escalante MD on 12/19/2018 10:44 AM
== END ==
LOC: RAD 09:58
PROVIDERS: ATTEND Urology
DX: N20.0 Calculus of kidney (principal)
CPT/HCPCS: 74018

== ENCOUNTER → 2019-04-26 | Day surgery (SDC) | payer MEDICARE, OTHER ==
[2019-04-23 10:23] LABS: BASOPHILS # (AUTO) 0.1 (0.0-0.1); BASOPHILS % 1.1 % (0.0-1.0); EOSINOPHILS # (AUTO) 0.3 (0.0-0.4); EOSINOPHILS % 4.5 % (0.0-6.0); HEMOGLOBIN 14.6 g/dL (14.0-18.0); LYMPHOCYTES # (AUTO) 1.8 (1.0-3.2); LYMPHOCYTES % 23.7 % (18.0-39.1); MEAN CORPUSCULAR HEMOGLOBIN 31.4 pg (28-32); MEAN CORPUSCULAR VOLUME 92.5 fL (81-99); MONOCYTES # (AUTO) 0.9 (0.2-0.8); MONOCYTES % 11.5 % (4.4-11.3); NEUTROPHILS # (AUTO) 4.4 (2.1-6.9); NEUTROPHILS % 58.8 % (38.7-80.0); PLATELET COUNT 247 x10e3/uL (140-360); RED BLOOD COUNT 4.65 x10e6/uL (4.3-5.7); RED CELL DISTRIBUTION WIDTH 13.6 % (11.7-14.4)
[2019-04-23 10:46] LABS: ALBUMIN 4.1 g/dL (3.5-5.0); ALBUMIN/GLOBULIN RATIO 1.4 (0.8-2.0); ANION GAP 13.7 mmol/L (8-16); CREATININE, SERUM 1.52 mg/dL (0.72-1.25); POTASSIUM 4.7 mmol/L (3.5-5.1)
--- NOTE | 2019-04-23 11:12 | Diagnostic Imaging Report ---
EXAMINATION: CHEST 2 VIEWS INDICATION: Pre-operative COMPARISON: Multiple prior chest radiographs most recently 06/28/2018 and dating back to 10/18/2016 FINDINGS: LINES/TUBES:None LUNGS:The lungs are well-inflated. No focal consolidation or pulmonary edema. Unchanged curvilinear opacity at the right lung apex dating back to 2017. PLEURA:No pleural effusion or pneumothorax. MEDIASTINUM:The cardiomediastinal silhouette appears normal in size and shape. Atherosclerotic calcifications of the thoracic aorta. BONES/SOFT TISSUES:No acute osseous injury. ABDOMEN:No free air under the diaphragm. IMPRESSION: No focal pneumonia or pulmonary edema. Signed by: Adrián Escalante MD on 04/23/2019 11:09 AM
--- NOTE | 2019-04-23 11:13 | Diagnostic Imaging Report ---
Exam: KUB - 2 views Indication: Preoperative Comparison: KUB of 12/19/2018 Findings: Unchanged appearance of bilateral renal calculi measuring up to 8 mm on the right and a cluster of left lower pole calculi measuring up to 5 mm. No acute osseous injury. Nonobstructive bowel gas pattern. No free air. Unchanged left iliac stent. Phleboliths in the pelvis. Impression: Unchanged bilateral renal calculi. Signed by: Adrián Escalante MD on 04/23/2019 11:11 AM
[~2019-04-26] MED LIST changes: +ASPIRIN81 MG PO; +B&O 60MG R/S 60 MG SUPP PR ONE; +CEFTRIAXONE SOD 1 GM/NS 50 ML 50 ML IV ONE; +CLOPIDOGREL75 MG PO; +EPHEDRINE SULFATE INJ 50 MG/ML VIAL ONE; +FENTANYL CITRATE/PF 100MCG/2 ML INJ ONE; +IOPAMIDOL 300MG/ML 50ML INFUS..BTL IV ONE; +LIDOCAINE HCL 2% LOCAL INJ 5 ML SDV VIAL INJ ONE; +ONDANSETRON HCL INJ 2MG/ML 2ML 2 MG/ML VIAL ONE; +PROPOFOL IV EMULSION 10 MG/ML 20 ML VIAL ONE; +SEVOFLURANE INHAL SOLN 250 ML PEN BTL ONE
[2019-04-26 10:45] VITALS: BP 113/71
--- NOTE | 2019-06-10 03:58 | Operative Report ---
DATE OF PROCEDURE: 04/26/2019 SURGEON: Gee Lewis MD PREOPERATIVE DIAGNOSIS: Right nephrolithiasis. POSTOPERATIVE DIAGNOSIS: Right nephrolithiasis. OPERATIONS PERFORMED: 1. Staged right-sided extracorporeal shock wave lithotripsy. 2. Supervision of fluoroscopy, no radiologist present. ANESTHESIA: General. COMPLICATIONS: None. CLINICAL SUMMARY: Marisol Kendall is an 84-year-old man with bilateral nephrolithiasis. He was brought for a staged procedure. He is aware of the risks of bleeding, infection, injury to adjacent structures, need for additional procedures and elected to proceed. OPERATIVE PROCEDURE IN DETAIL: Informed consent was verified. Marisol Kendall was properly identified and taken to the operating room placed on lithotripsy table in supine position. Anesthesia was uneventfully begun. The patient was then carefully and gently repositioned in the dorsal lithotomy position with all pressure points well padded. His genitalia were prepared. The patient's right nephrolithiasis was localized with biplanar fluoroscopy. A total of 3000 shocks were delivered to the 7 mm lower calyceal stone. Fragmentation appeared to be noted fluoroscopically. The patient was then uneventfully reversed from anesthesia and taken to recovery room in stable condition. There were no complications to the procedure. He tolerated the procedure well. Plans will be to return the patient to the operating room for left ESWL with probable cystoscopy with retrograde ureteropyelography. Gee Lewis MD [place]/MODL /[id number]
== END | disposition home or self-care (01) ==
LOC: OR 06:46
PROVIDERS: ATTEND Urology
DX: N20.0 Calculus of kidney (principal); I10 Essential (primary) hypertension; I73.9 Peripheral vascular disease, unspecified; Z87.891 Personal history of nicotine dependence; Z88.8 Allergy status to other drugs, medicaments and biological substances; Z01.810 Encounter for preprocedural cardiovascular examination; Z01.812 Encounter for preprocedural laboratory examination; Z01.811 Encounter for preprocedural respiratory examination; Z01.818 Encounter for other preprocedural examination; C61 Malignant neoplasm of prostate; Z87.440 Personal history of urinary (tract) infections
CPT/HCPCS: 36415; 50590; 71046; 74018; 80053; 84152; 84550; 85025; 93005; J0696; J2001; J2405; J2704; J3010

== ENCOUNTER → 2019-05-29 | Outpatient (CLI) | payer MEDICARE, OTHER ==
[~2019-05-29] MED LIST changes: -B&O 60MG R/S 60 MG SUPP PR ONE; -CEFTRIAXONE SOD 1 GM/NS 50 ML 50 ML IV ONE; -EPHEDRINE SULFATE INJ 50 MG/ML VIAL ONE; -FENTANYL CITRATE/PF 100MCG/2 ML INJ ONE; -IOPAMIDOL 300MG/ML 50ML INFUS..BTL IV ONE; -LIDOCAINE HCL 2% LOCAL INJ 5 ML SDV VIAL INJ ONE; -ONDANSETRON HCL INJ 2MG/ML 2ML 2 MG/ML VIAL ONE; -PROPOFOL IV EMULSION 10 MG/ML 20 ML VIAL ONE; -SEVOFLURANE INHAL SOLN 250 ML PEN BTL ONE
--- NOTE | 2019-05-29 17:11 | Diagnostic Imaging Report ---
Exam: KUB - 2 views Indication: Renal calculus Comparison: Multiple prior KUBs, most recently 04/15/2019 Findings: Again seen are bilateral renal calculi measuring up to 6 mm on the right and 7 mm on the left. No new radiographically apparent renal calculi. Nonobstructive bowel gas pattern. No free air. Phlebolith in the pelvis. Left iliac stent. No acute osseous injury. Impression: Unchanged bilateral renal calculi. Signed by: Adrián Escalante MD on 05/29/2019 5:08 PM
== END ==
LOC: RAD 16:06
PROVIDERS: ATTEND Urology
DX: N20.0 Calculus of kidney (principal)
CPT/HCPCS: 74018

== ENCOUNTER → 2019-08-02 | Day surgery (SDC) | payer MEDICARE, OTHER ==
[2019-07-30 09:24] LABS: BASOPHILS # (AUTO) 0.1 (0.0-0.1); EOSINOPHILS # (AUTO) 0.6 (0.0-0.4); EOSINOPHILS % 7.3 % (0.0-6.0); HEMATOCRIT 36.8 % (38.2-49.6); HEMOGLOBIN 12.1 g/dL (14.0-18.0); LYMPHOCYTES # (AUTO) 1.5 (1.0-3.2); LYMPHOCYTES % 18.2 % (18.0-39.1); MEAN CORPUSCULAR HEMOGLOBIN 31.7 pg (28-32); MEAN CORPUSCULAR HGB CONC 32.9 g/dL (31-35); MEAN CORPUSCULAR VOLUME 96.3 fL (81-99); MONOCYTES # (AUTO) 0.9 (0.2-0.8); MONOCYTES % 11.3 % (4.4-11.3); NEUTROPHILS # (AUTO) 5.1 (2.1-6.9); NEUTROPHILS % 61.8 % (38.7-80.0); PLATELET COUNT 247 x10e3/uL (140-360); RED BLOOD COUNT 3.82 x10e6/uL (4.3-5.7); RED CELL DISTRIBUTION WIDTH 13.2 % (11.7-14.4)
--- NOTE | 2019-08-01 10:30 | Diagnostic Imaging Report ---
EXAM: ABDOMEN-1VIEW (KUB) DATE: 07/30/2019 9:04 AM INDICATION: Kidney stones, preoperative evaluation COMPARISON: 05/29/2019 FINDINGS: Again identified are stable appearing bilateral renal calculi measuring up to 7 mm bilaterally. Suspected phleboliths noted within the pelvis. Bowel gas pattern is nonobstructive. Left iliac stent again noted. Degenerative changes noted of the lumbosacral spine. No acute osseous abnormalities identified. IMPRESSION: Stable appearing bilateral renal calculi. Signed by: Dr. Justin Varela MD on 07/30/2019 9:57 AM
[~2019-08-02] MED LIST changes: +B&O 60MG R/S 60 MG SUPP PR ONE; +CEFTRIAXONE SOD 1 GM/NS 50 ML 50 ML IV ONE; +DEXAMETHASONE SOD PHOS INJ 4 MG/ML VIAL ONE; +IOPAMIDOL 300MG/ML 50ML INFUS..BTL IV ONE; +LIDOCAINE HCL 2% LOCAL INJ 5 ML SDV VIAL INJ ONE; +MULTI-VITAMIN1 EACH PO; +ONDANSETRON HCL INJ 2MG/ML 2ML 2 MG/ML VIAL ONE; +PROPOFOL IV EMULSION 10 MG/ML 20 ML VIAL ONE; +SEVOFLURANE INHAL SOLN 250 ML PEN BTL ONE; +VITAMIN B122500 MCG PO; +VITAMIN C500 M6 PO; +VITAMIN D PO; +VITAMIN K100 MCG PO
--- OUTSIDE RECORDS SUMMARY | 2019-08-02 06:50 | XMS REPORT | Clinical Summary ---
Author Author JOSE [facility] Address Unknown Phone Unavailable Care Team Providers Care Radiological Technologist Name Role Phone Tony Jeff MD PCP Unavailable Allergies Not on File Medications Not on file Active Problems Not on file Encounters Care Team Description Date Type Specialty Tony Jeff MD Pain in right hip 12/18/2018 Hospital Radiology Encounter Tony Jeff MD Pain in right hip (Primary Dx) 12/18/2018 Outside Orders Central Scheduling after 08/01/2018 Social History Date Tobacco Use Types Packs/Day [...] Procedures Comments Procedure Name Priority Date/Time Associated Diag nosis XR HIP 2 VIEWS RIGHT Routine 12/18/2018 Pain in r ight hip 11:28 AM CDT after 08/01/2018 Results * XR hip 2 views right (12/18/2018 11:28 AM CDT) Specimen Narrative Performed At FINAL REPORT GE [facility] RIGHT HIP History provided: Hip pain Bony pelvis and hips appear intact. No fracture or dislocation, and no hip joint space narrowing. Left common iliac vascular stent noted. Signed: Kai Arshad MD Report Verified Date/Time: 9 12:29:07 Reading Location: [facility] Reading Room - [facility] [id number] Procedure Note Interface, External Ris In - 12/18/2018 12:31 PM CDT FINAL REPORT RIGHT HIP History provided: Hip pain Bony pelvis and hips appear intact. No fracture or dislocation, and no hip joint space narrowing. Left common iliac vascular stent noted. Signed: Kai Arshad MD Report Verified Date/Time: 12/18/2018 12:29:07 Reading Location: [facility] Diagnostic Imaging Reading Room - [facility] [id number] Performing Organization Address City/State/Zipcode Ph one Number GE RIS after 08/01/2018 Insurance Payer Benefit Subscriber ID Type Phone Address Plan / Group MEDICARE MEDICARE A xxxxxxxxxxx Medicare B CIGNA - COMMERCIAL CIGNA xxxxxxxxxx Comm INDEMNITY [address] [place] ([place]) [place] [address]
--- OUTSIDE RECORDS SUMMARY | 2019-08-02 06:51 | XMS REPORT ---
Author Author Marisol Muñoz Organization [employer] Address Unknown Phone Unavailable Care Team Providers Care Coil Former Name Role Phone Tony Muñoz CP Unavailable Allergies, Adverse Reactions, Alerts Substance Reaction Event Type Statin Myalgia Non Drug Allergy Problems Problem Type Condition Code Onset Dates Condition Statu s Problem Annual visit for general sarath lt medical examination with abnormal findings Z00.01 Active Problem Malignant neoplasm of prostate C61 Active Problem Claudication in peripheral vascular disease I73.9 Active Problem Benign prostatic hyperplasia without lower urina ry tract symptoms N40.0 Active Problem Prediabetes R73.03 Active Problem Atherosclerosis of aorta I70.0 Act shon Problem Hyperglycemia, unspecified R73.9 A ctive Problem Other hyperlipidemia E78.4 Active Problem Essential (primary) hypertension I10 Active Assessment Essential (primary) hypertension I10 Active Assessment Hyperglycemia, unspecified R73.9 A ctive Assessment Annual visit for general sarath lt medical examination with abnormal findings Z00.01 Active Assessment Prediabetes R73.03 Active Assessment Benign prostatic hyperplasia without low er urinary tract symptoms N40.0 Active Assessment Claudication in peripheral vascular disease I73.9 Active Assessment Malignant neoplasm of prostate C61 Active Assessment Pain in right leg M79.604 Active Assessment Atherosclerosis of aorta I70.0 Act shon Assessment Pain of left leg M79.605 Active Medications Medication Code System Code Instructions Start Date End Date Status Dosage Amlodipine Besylate ND 53866260881 5 MG Orally Once a day Active 1 tablet Latanoprost [facility] 72792590623 0.005 % Ophthalmic Once a day Active 1 drop into affected eye in the evening Losartan Potassium ND 49291540645 50 MG Orally Once a day Active 1 tablet Lipitor ND 42285618419 10 MG Orally Once a day June 23, 2017 Active 1 tablet Vital Signs Date/Time: August 29, 2018 Blood Pressure Systolic 160 mm Hg Height 65 in Weight 160 lbs BMI 26.62 Index Cardiac Monitoring Heart Rate 71 /min Temperature 97.5 F Blood Pressure Diastolic 72 mm Hg Results Name Result Date Reference Range Unit Abnormali ty Flag CBC With Differential/Platelet ----Lymphs 26 20180830 Not Estab. % ----Neutrophils 61 20180830 Not Estab. % ----Baso (Absolute) 0.0 20180830 0.0-0.2 x10E3/uL ----Hemoglobin 14.5 20180830 13.0-17.7 g/dL ----Eos (Absolute) 0.2 20180830 0.0-0.4 x10E3/uL ----Hematocrit 41.9 20180830 37.5-51.0 % ----Monocytes(Absolute) 1.0 20180830 0.1-0.9 x10E3/uL H ----MCV 92 20180830 79-97 fL ----Lymphs (Absolute) 2.6 20180830 0.7-3.1 x10E3/uL ----MCH 31.9 20180830 26.6-33.0 pg ----Neutrophils (Absolute) 5.8 20180830 1.4-7.0 x10E3/uL ----MCHC 34.6 20180830 31.5-35.7 g/dL ----Immature Granulocytes 0 20180830 Not Estab. % ----Basos 0 20180830 Not Estab. % ----RDW 13.6 20180830 12.3-15.4 % ----Immature Grans (Abs) 0.0 20180830 0.0-0.1 x10E3/uL ----Eos 2 20180830 Not Estab. % ----WBC 9.7 20180830 3.4-10.8 x10E3/uL ----Platelets 275 20180830 150-450 x10E3/uL ----RBC 4.54 86788254 4.14-5.80 x10E6/uL ----Monocytes 11 53177669 Not Estab. % Triiodothyronine,Free,Serum ----Triiodothyronine (T3), Free 2.5 20180830 2.0-4.4 pg/m L Comp. Metabolic Panel (14) ----A/G Ratio 1.8 20180830 1.2-2.2 ----Globulin, Total 2.4 20180830 1.5-4.5 g/dL ----Alkaline Phosphatase 89 20180830 39-117 IU/L ----Bilirubin, Total 0.5 20180830 0.0-1.2 mg/dL ----Chloride 103 20180830 96-106 mmol/L ----ALT (SGPT) 14 20180830 0-44 IU/L ----Potassium 4.7 20180830 3.5-5.2 mmol/L ----AST (SGOT) 15 20180830 0-40 IU/L ----Sodium 141 20180830 134-144 mmol/L ----BUN/Creatinine Ratio 24 20180830 10-24 ----eGFR If Africn Am 79 20180830 >59 mL/min/1.73 ----Calcium 9.4 20180830 8.6-10.2 mg/dL ----Carbon Dioxide, Total 24 20180830 20-29 mmol/L ----Albumin 4.3 20180830 3.5-4.7 g/dL ----Protein, Total 6.7 20180830 6.0-8.5 g/dL ----Glucose 113 20180830 65-99 mg/dL H ----BUN 24 20180830 8-27 mg/dL ----Creatinine 1.02 20180830 0.76-1.27 mg/dL ----eGFR If NonAfricn Am 69 20026929 >59 mL/min/1.73 Magnesium, Serum ----Magnesium 2.2 20180830 1.6-2.3 mg/dL Thyroxine (T4) Free, Direct, S ----T4,Free(Direct) 0.98 20180830 0.82-1.77 ng/dL Hemoglobin A1c ----Hemoglobin A1c 5.8 20180830 4.8-5.6 % H Iron and TIBC ----Iron Bind.Cap.(TIBC) 277 20180830 250-450 ug/dL ----UIBC 216 20180830 111-343 ug/dL ----Iron 61 20180830 38-169 ug/dL ----Iron Saturation 22 20180830 15-55 % TSH ----TSH 1.440 20180830 0.450-4.500 uIU/mL Lipid Panel With LDL/HDL Ratio ----HDL Cholesterol 42 20180830 >39 mg/dL ----Triglycerides 81 20180830 0-149 mg/dL ----LDL Cholesterol Calc 125 20180830 0-99 mg/dL H ----VLDL Cholesterol Abad 16 20180830 5-40 mg/dL ----LDL/HDL Ratio 3.0 20180830 0.0-3.6 ratio ----Cholesterol, Total 183 20180830 100-199 mg/dL Summary Purpose [employer]ClinicalWorks Submission
--- OUTSIDE RECORDS SUMMARY | 2019-08-02 06:51 | XMS REPORT ---
Author Author Marisol Jeff [facility] [employer] Address Unknown Phone Unavailable Care Team Providers Care Charity Fundraiser Name Role Phone Tony Jeff CP Unavailable Allergies, Adverse Reactions, Alerts Substance Reaction Event Type Statin Myalgia Non Drug Allergy Problems Problem Type Condition Code Onset Dates Condition Statu s Problem Hyperglycemia, unspecified R73.9 A ctive Problem Essential (primary) hypertension I10 Active Problem Atherosclerosis of aorta I70.0 Act shon Problem Peripheral vascular disease I73.9 Active Assessment Prediabetes R73.03 Active Problem Other hyperlipidemia E78.49 Active Assessment Claudication in peripheral vascular disease I73.9 Active Problem Essential hypertension I10 Activ e Problem Benign prostatic hyperplasia without lower urina ry tract symptoms N40.0 Active Problem Other hyperlipidemia E78.4 Active Problem Claudication in peripheral vascular disease I73.9 Active Problem Prediabetes R73.03 Active Assessment Malignant neoplasm of prostate C61 Active Assessment Hyperglycemia, unspecified R73.9 A ctive Assessment Benign prostatic hyperplasia without low er urinary tract symptoms N40.0 Active Assessment Atherosclerosis of aorta I70.0 Act shon Assessment Essential hypertension I10 Activ e Assessment Peripheral vascular disease I73.9 Active Problem Malignant neoplasm of prostate C61 Active Assessment Other hyperlipidemia E78.49 Active Problem Annual visit for general sarath lt medical examination with abnormal findings Z00.01 Active Medications Medication Code System Code Instructions Start Date End Date Status Dosage Amlodipine Besylate [facility] 16595379642 5 MG Orally Once a day Active 1 tablet Losartan Potassium ND 11939189787 50 MG Orally Once a day Active 1 tablet K2 Plus D3 [facility] 50702986205 100-1000 MCG-UNIT Orally Active as directed Latanoprost [facility] 36543169538 0.005 % Ophthalmic Once a day Active 1 drop into affected eye in the evening Clopidogrel Bisulfate ND 78177765928 75 MG Orally Once a day Active 1 tablet Aspir-Low [facility] 14637346767 81 MG Orally Once a day Ac tive [address] [facility] 55139081547 - Orally Active as directe d Vitamin B [address] [facility] 23779277466 500 MCG Orally Once a day Active 1 tablet Vital Signs Date/Time: May 22, 2019 Blood Pressure Systolic 158 mm Hg Height 65 in Weight 162 lbs BMI 26.96 Index Cardiac Monitoring Heart Rate 65 /min Temperature 97.8 F Blood Pressure Diastolic 84 mm Hg Results Name Result Date Reference Range Unit Abnormali ty Flag 2708 HEMOGLOBIN A1c ----HEMOGLOBIN A1c 5.6 06037704 4.2-5.6 % 1000 CBC W/AUTO DIFF ----PLATELET COUNT 252 20190522 130-400 K/UL ----MCV 91.7 05720044 80.0-100.0 fL ----BASOPHILS 0.8 51551851 0.0-2.0 % ----HEMATOCRIT 38.9 22927600 37.0-49.0 % ----MCHC 34.7 78250718 32.0-35.5 G/DL ----EOSINOPHILS 5.9 87465296 0.0-7.0 % ----MCH 31.8 43244119 27.0-34.0 PG ----MONOCYTES 10.8 15958807 4.0-13.0 % ----WBC 9.6 46798398 4.0-11.0 K/UL ----HEMOGLOBIN 13.5 30817144 13.0-17.0 G/DL ----RBC 4.24 63791596 4.10-5.70 M/UL ----LYMPHOCYTES 25.7 68322516 19.0-48.0 % ----RDW 13.0 87307715 11.0-15.0 % ----NEUTROPHILS 56.8 01452645 40.0-74.0 % 9179 COMPREHENSIVE METABOLIC PANEL ----CALC A/G RATIO 1.9 20190522 1.0-2.6 RATIO ----CALC GLOBULIN 2.5 97168491 1.9-3.7 G/DL ----ALKALINE PHOSPHATASE 76 20190522 40-125 U/L ----BILIRUBIN, TOTAL 0.5 20190522 <=1.2 MG/DL ----CHLORIDE 105 20190522 95-107 MEQ/L ----ALT 14 20190522 5-50 U/L ----POTASSIUM 5.2 20190522 3.5-5.4 MEQ/L ----AST 15 20190522 9-50 U/L ----SODIUM 143 20190522 133-146 MEQ/L ----CALC BUN/CREAT 22 20190522 6-28 RATIO ---- eGFR NON- AMER. 43 20190522 >60 ML/MIN/1 .73 L ----CALCIUM 9.9 20190522 8.5-10.5 MG/DL ----CARBON DIOXIDE 24 20190522 19-31 MEQ/L ----ALBUMIN 4.7 20190522 3.5-5.2 G/DL ----PROTEIN, TOTAL 7.2 20190522 6.1-8.3 G/DL ----GLUCOSE 98 20190522 70-99 MG/DL ----BUN 33 20190522 8-23 MG/DL H ----CREATININE 1.48 13509544 0.80-1.40 MG/DL H ---- eGFR AMER. 50 20190522 >60 ML/MIN/1.73 L 4895 MICROALBUMIN/CREATININE, RANDOM AND RATIO ----ALBUMIN, URINE, RANDOM 11.1 09346800 MG/DL ----CALC ALBUMIN/CREAT, RND 139 47811056 <30 MG/G H ----CREATININE, URINE, CONC. 79.7 37724348 NOT ESTAB MG/DL 176 LIPID PANEL WITH CALC TRIG/HDL RATIO ----CALC TRIG/HDL 2.0 85494441 <4.6 ----CALC NON-HDL CHOL 151 13302653 <130 MG/DL H ----RISK RATIO LDL/HDL 2.74 99169271 <3.55 RATIO ----CALC LDL CHOL 132 00924864 <100 MG/DL H ----HDL CHOLESTEROL 48 51050214 >39 MG/DL ----TRIGLYCERIDES 97 53165457 <150 MG/DL ----CHOLESTEROL 199 59878481 <200 MG/DL 2834 TSH REFLEX TO FREE T4 ----TSH REFLEX TO FREE T4 2.630 56375767 0.400-4.100 UIU/ML Summary Purpose eClinicalWorks Submission
--- OUTSIDE RECORDS SUMMARY | 2019-08-02 06:51 | XMS REPORT | Continuity of Care Document ---
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 Phone [employer] Unavailable Un available Problems Problem Status Onset Date Classification Date Reported Comments Source Orthostatic hypotension Active Problem 12/29/2017 [facility] Prostate cancer Active Problem 12/29/2017 [facility] Elevated blood sugar Active Problem 12/29/2017 [facility] Other hyperlipidemia Active Problem 07/12/2019 [facility] Essential (primary) hypertension Active Problem [facility] Benign prostatic hyperplasia without low er urinary tract symptoms Active Prob jean 07/12/2019 [facility] Malignant neoplasm of prostate Active Problem [facility] Atherosclerosis of aorta Active Problem 07/12/2019 [facility] Hyperglycemia, unspecified Act shon Problem [facility] Essential hypertension, benign Active Problem 07/2017 [facility] Nondependent tobacco use disorder Active Problem 07/2017 [facility] Other and unspecified hyperlipidemia Active Problem 07/2017 [facility] Abdominal aneurysm without mention of rupture Active Problem 12/29/2017 [facility] Other abnormal glucose Active Problem 12/29/2017 [facility] Screening for AAA (abdominal aortic aneurysm) Active Diagnosis 06/15/2017 [facility] Encounter for general adult medical exam ination with abnormal findings Active Diag nosis 06/15/2017 [facility] History of smoking Active Diagnosis 06/15/2017 [facility] Stenosis of right carotid artery Active Diagnosis 0 06/15/2017 [facility] Bilateral impacted cerumen Act shon Diagnosis 0 09/19/2016 [facility] Acute bacterial conjunctivitis of left eye Active Diagnosis 09/19/2016 [facility] Acute non-recurrent maxillary sinusitis Active Diagnosis 09/19/2016 [facility] Claudication in peripheral vascular disease Active Problem 07/12/2019 [facility] Prediabetes Active Problem 07/12/2019 [facility] Pain in right leg Active Diagnosis 09/24/2018 [facility] Pain of left leg Active Diagnosis 09/24/2018 [facility] History of tobacco use Active Diagnosis 09/19/2017 [facility] Screening for abdominal aortic aneurysm Active Diagnosis 09/19/2017 [facility] Bee sting Active Diagnosis 10/26/2013 [facility] Atherosclerosis of aorta Active Diagnosis 07/18/2013 [facility] Viral infection Active Diagnosis 05/18/2017 [facility] Cough Active Diagnosis 05/18/2017 [facility] Hypercalcemia Active Diagnosis 01/07/2014 [facility] High calcium levels Active Diagnosis 01/07/2014 [facility] Dizziness Active Diagnosis 04/03/2014 [facility] Myalgia Active Diagnosis 04/03/2014 [facility] Cerumen impaction Active Diagnosis 04/03/2014 [facility] Other abnormal glucose Active Diagnosis 04/04/2015 [facility] Prostatitis Active Diagnosis 03/01/2016 [facility] URI (upper respiratory infection) Active Diagnosis 0 08/23/2015 [facility] UTI (urinary tract infection) Active Diagnosis 0 08/23/2015 [facility] Hemorrhoids Active Diagnosis 03/01/2016 [facility] BPH (benign prostatic hyperplasia) Active Diagnosis 1 [facility] Abdominal bloating Active Diagnosis 01/06/2016 [facility] Excessive cerumen in both ear canals Active Diagnosis 0 08/27/2015 [facility] Impacted cerumen of left ear A ctive Diagnosis 0 08/27/2015 [facility] Peripheral vascular disease Ac tive Problem [facility] Other hyperlipidemia Active Problem 07/12/2019 [facility] Essential hypertension Active Problem 07/12/2019 [facility] Medications Medication Details Route Status Patient Instructions Ordering Provider Order Date Source Amlodipine Besylate 1 tablet Orally Active 5 MG Orally Once a day [facility] 11/14/2017 [facility] Losartan Potassium 1 tablet Orally Active 50 MG Orally Once a day [facility] 11/14/2017 [facility] Lipitor 1 tablet Orally Active 10 MG Orally Once a day [facility] 06/23/2017 [facility] Flonase 1 spray in each nostril Nasally Active 50 MCG/ACT Nasally twice a day [facility] 08/02/2016 [facility] ed Tobramycin 1 drop into affecte d eye Ophthalmic Active 0.3 % Ophthalmic 4 times a day [facility] 08/02/2016 [facility] Zithromax Z-Eugenio 2 tablets on the first day, then 1 tablet daily for 4 days Orally Active 250 MG Orally Once a day [facility] 08/02/2016 [facility] Flonase 1 spray in each nostril Nasally Active 50 MCG/ACT Nasally twice a day [facility] 08/02/2016 [facility] Zithromax Z-Eugenio 2 tablets on the first day, then 1 tablet daily for 4 days Orally Active 250 MG Orally Once a day [facility] 08/02/2016 [facility] Tobramycin 1 drop into affecte d eye Ophthalmic Active 0.3 % Ophthalmic 4 times a day [facility] 08/02/2016 [facility] Losartan Potassium 1 tablet Orally Active 25 Orally Once a day [facility] 08/10/2015 [facility] Cipro 1 tablet Orally Active 500 mg Orally Twice a d ay [facility] 08/03/2015 [facility] DiphenhydrAMINE HCl as directed Externally Active 2 % Externally Three times a day [facility] 10/16/2013 [facility] MethylPREDNISolone (Uegenio) as di rected Orally Active 4 mg Orally as directed [facility] 10/16/2013 [facility] Atorvastatin Calcium 1 tablet Orally Active 20 mg Orally Once a day [facility] 07/10/2013 [facility] Losartan Potassium 1 tablet Orally Active 50 MG Orally Once a day [facility] Latanoprost 1 drop into affect ed eye in the evening Ophthalmic Active 0.005 % Ophthalmic Once a day [facility] Amlodipine Besylate 1 tablet Orally Active 2.5 MG Orally Once a day [facility] Cheratussin AC 5 ml Orally Active 100-10 MG/5ML Orally ev arabella 6 hrs [facility] Medrol as directed Orally Active 4 MG Orally as directed [facility] Anucort-HC 1 suppository Rectal Active 25 MG Rectal Twice a da y [facility] Aspir-81 1 tablet Orally Active 81 MG Orally Once a day [facility] Tamsulosin HCl as directed Orally Active 0.4 MG Orally daily [facility] Latanoprost 1 drop into affect ed eye in the evening Ophthalmic Active 0.005 % Ophthalmic Once a day [facility] Losartan Potassium TAKE ONE TA BLET BY MOUTH DAILY NA Active 25 [facility] Amlodipine Besylate 1 tablet Orally Active 5 MG Orally Once a day [facility] Amlodipine Besylate-Valsartan 1 tablet Orally Active 5-160 MG Orally Once a day [facility] Lisinopril-Hydrochlorothiazide 1 tablet Orally Active 10-12.5 MG Orally Once a day [facility] Atorvastatin Calcium 1 tablet Orally Active 20 Orally Once a day [facility] ASA 1 tab Or al Active Oral [facility] Losartan Potassium 1 tablet Orally Active 25 Orally Once a day [facility] K2 Plus D3 as directed Orally Active 100-1000 MCG-UNIT Orall y [facility] Clopidogrel Bisulfate 1 tablet Orally Active 75 MG Orally Once a day [facility] Aspir-Low 1 tablet Orally Active 81 MG Orally Once a day [facility] MiraLax as directed Orally Active - Orally [facility] Vitamin B 12 1 tablet Orally Active 500 MCG Orally Once a d ay [facility] Allergies, Adverse Reactions, Alerts Substance Category Reaction Severity Reaction type Status Date Reported Comments Source N.K.D.A. Adverse Reaction Info Not Available Adverse Reaction Active 10/16/2013 [facility] Statin Adverse Reaction Myalgia Adverse Reaction Active 05/22/2019 [facility] Immunizations No Data Provided for This Section Results No Data Provided for This Section Pathology Reports No Data Provided for This Section Diagnostic Reports No Data Provided for This Section Consultation Notes No Data Provided for This Section Discharge Summaries No Data Provided for This Section History and Physicals No Data Provided for This Section Vital Signs Vital Sign Value Date Comments Source Systolic (mm Hg) 158 05/22/2019 [facility] Height 65 0 05/22/2019 [facility] Weight 162 05/22/2019 [facility] Heart Rate 65 05/22/2019 [facility] Temperature Oral (F) 97.8 F 05/22/2019 [facility] Diastolic (mm Hg) 84 05/22/2019 [facility] Systolic (mm Hg) 160 08/29/2018 [facility] Height 65 0 08/29/2018 [facility] Weight 160 08/29/2018 [facility] Heart Rate 71 08/29/2018 [facility] Temperature Oral (F) 97.5 F 08/29/2018 [facility] Diastolic (mm Hg) 72 08/29/2018 [facility] Systolic (mm Hg) 138 06/19/2017 [facility] Height 65 0 06/19/2017 [facility] Weight 171 06/19/2017 [facility] Heart Rate 62 06/19/2017 [facility] Temperature Oral (F) 97.5 F 06/19/2017 [facility] Diastolic (mm Hg) 80 06/19/2017 [facility] Systolic (mm Hg) 158 05/25/2017 [facility] Height 65 0 05/25/2017 [facility] Weight 174 05/25/2017 [facility] Heart Rate 70 05/25/2017 [facility] Temperature Oral (F) 97.7 F 05/25/2017 [facility] Diastolic (mm Hg) 88 05/25/2017 [facility] Systolic (mm Hg) 150 04/27/2017 [facility] Height 65 0 04/27/2017 [facility] Weight 173 04/27/2017 [facility] Heart Rate 75 04/27/2017 [facility] Temperature Oral (F) 97.8 F 04/27/2017 [facility] Diastolic (mm Hg) 80 04/27/2017 [facility] Systolic (mm Hg) 148 08/02/2016 [facility] Height 65 0 08/02/2016 [facility] Weight 170 08/02/2016 [facility] Heart Rate 75 08/02/2016 [facility] Temperature Oral (F) 98.2 F 08/02/2016 [facility] Diastolic (mm Hg) 80 08/02/2016 [facility] Systolic (mm Hg) 152 02/24/2016 [facility] Height 65 1 04/25/2015 [facility] Weight 175 02/24/2016 [facility] Heart Rate 63 02/24/2016 [facility] Temperature Oral (F) 97.5 F 02/24/2016 [facility] Diastolic (mm Hg) 80 02/24/2016 [facility] Systolic (mm Hg) 140 11/17/2015 [facility] Height 65 0 11/17/2015 [facility] Weight 173 11/17/2015 [facility] Heart Rate 66 11/17/2015 [facility] Temperature Oral (F) 97.9 F 11/17/2015 [facility] Diastolic (mm Hg) 90 11/17/2015 [facility] Systolic (mm Hg) 140 08/10/2015 [facility] Height 65 0 08/10/2015 [facility] Weight 166 08/10/2015 [facility] Heart Rate 70 08/10/2015 [facility] Temperature Oral (F) 98 F 08/10/2015 [facility] Diastolic (mm Hg) 90 08/10/2015 [facility] Systolic (mm Hg) 142 08/03/2015 [facility] Height 65 0 08/03/2015 [facility] Weight 167 08/03/2015 [facility] Heart Rate 48 08/03/2015 [facility] Temperature Oral (F) 98.3 F 08/03/2015 [facility] Diastolic (mm Hg) 70 08/03/2015 [facility] Systolic (mm Hg) 128 05/27/2015 [facility] Height 65 0 05/27/2015 [facility] Weight 171 05/27/2015 [facility] Heart Rate 64 05/27/2015 [facility] Temperature Oral (F) 97.6 F 05/27/2015 [facility] Diastolic (mm Hg) 86 05/27/2015 [facility] Systolic (mm Hg) 130 10/01/2014 [facility] Height 65 0 10/01/2014 [facility] Weight 170 10/01/2014 [facility] Heart Rate 60 10/01/2014 [facility] Temperature Oral (F) 98 F 10/01/2014 [facility] Diastolic (mm Hg) 72 10/01/2014 [facility] Systolic (mm Hg) 134 12/31/2013 [facility] Height 65 1 [facility] Weight 172 12/31/2013 [facility] Heart Rate 62 12/31/2013 [facility] Temperature Oral (F) 98.1 F 12/31/2013 [facility] Diastolic (mm Hg) 68 12/31/2013 [facility] Systolic (mm Hg) 118 12/26/2013 [facility] Height 65 1 [facility] Weight 168.4 12/26/2013 [facility] Heart Rate 63 12/26/2013 [facility] Temperature Oral (F) 98.5 F 12/26/2013 [facility] Diastolic (mm Hg) 58 12/26/2013 [facility] Systolic (mm Hg) 128 10/16/2013 [facility] Height 65 0 10/16/2013 [facility] Weight 168.8 10/16/2013 [facility] Heart Rate 71 10/16/2013 [facility] Temperature Oral (F) 98.0 F 10/16/2013 [facility] Diastolic (mm Hg) 70 10/16/2013 [facility] Systolic (mm Hg) 120 07/10/2013 [facility] Height 65 0 07/10/2013 [facility] Weight 164 07/10/2013 [facility] Heart Rate 70 07/10/2013 [facility] Temperature Oral (F) 97.5 F 07/10/2013 [facility] Diastolic (mm Hg) 64 07/10/2013 [facility] Encounters Location Location Details Encounter Type Encounter Number Reason For Visit Attending Provider ADM Date DC Date Status Source [facility], [facility]. f/u review BW and MARILU [id number] 07/10/2013 07/10/[address] [facility]. f/u review BW and MARILU [id number] 07/10/2013 07/10/2013 [facility], [facility]. f/u review BW and DI [id number] 07/10/2013 07/10/[address] [facility]. f/u review BW and DI [id number] 07/10/2013 07/10/[address] [facility]. f/u review BW and DI [id number] 07/10/2013 07/10/[address] [facility]. f/u review BW and DI [id number] 07/10/2013 07/10/2013 [facility], [facility]. f/u review BW and DI [id number] 07/10/2013 07/10/2013 [facility], [facility]. f/u review BW and DI [id number] 07/10/2013 07/10/2013 [facility], [facility]. f/u review BW and DI [id number] 07/10/2013 07/10/2013 [facility], [facility]. f/u review BW and DI [id number] 07/10/2013 07/10/2013 [facility], [facility]. f/u review BW and DI [id number] 07/10/2013 07/10/2013 [facility], [facility]. f/u review BW and DI [id number] 07/10/2013 07/10/2013 [facility], [facility]. f/u review BW and DI [id number] 07/10/2013 07/10/2013 [facility], [facility]. f/u review BW and DI [id number] 07/10/2013 07/10/2013 [facility], [facility]. f/u review BW and DI [id number] 07/10/2013 07/10/2013 [facility] f/u review BW and DI [id number] 07/10/2013 07/10/2013 [facility] f/u review BW and DI [id number] 07/10/2013 07/10/2013 [facility] 3 MTH FU/BLWK [id number] 10/16/2013 10/16/2013 [facility] 3 MTH FU/BLWK [id number] 10/16/2013 10/16/2013 [facility] 3 MTH FU/BLWK [id number] 10/16/2013 10/16/2013 [facility] 3 MTH FU/BLWK [id number] 10/16/2013 10/16/2013 [facility] 3 MTH FU/BLWK [id number] 10/16/2013 10/16/2013 [facility] 3 MTH FU/BLWK [id number] 10/16/2013 10/16/2013 [facility] 3 MTH FU/BLWK [id number] 10/16/2013 10/16/2013 [facility] 3 MTH FU/BLWK [id number] 10/16/2013 10/16/2013 [facility] 3 MTH FU/BLWK [id number] 10/16/2013 10/16/2013 [facility] 3 MTH FU/BLWK [id number] 10/16/2013 10/16/2013 [facility] 3 MTH FU/BLWK [id number] 10/16/2013 10/16/2013 [facility] 3 MTH FU/BLWK [id number] 10/16/2013 10/16/2013 [facility] 3 MTH FU/BLWK [id number] 10/16/2013 10/16/2013 [facility] 3 MTH FU/BLWK [id number] 10/16/2013 10/16/2013 [facility] 3 MTH FU/BLWK [id number] 10/16/2013 10/16/2013 [facility] 3 MTH FU/BLWK [id number] 10/16/2013 10/16/2013 [facility] ISSUES [id number] 12/27/19 14 12/26/2013 [facility] ISSUES [id number] 12/27/19 14 12/26/[address] [facility]. ISSUES [id number] 12/27/19 14 12/26/[address] [facility]. ISSUES [id number] 12/27/19 14 12/26/[address] [facility]. ISSUES [id number] 12/27/19 14 12/26/[address] [facility]. ISSUES [id number] 12/27/19 14 12/26/[address] [facility]. ISSUES [id number] 12/27/19 14 12/26/[address] [facility]. ISSUES [id number] 12/27/19 14 12/26/[address] [facility]. ISSUES [id number] 12/27/19 14 12/26/[address] [facility]. ISSUES [id number] 12/27/19 14 12/26/[address] [facility]. ISSUES [id number] 12/27/19 14 12/26/[address] [facility]. Unknown [id number] 12/28/19 14 12/27/[address] [facility]. Unknown [id number] 12/28/19 14 12/27/2013 [facility], [facility]. Unknown [id number] 12/28/19 14 12/27/2013 [facility], [facility]. Unknown [id number] 12/28/19 14 12/27/2013 [facility], [facility]. Unknown [id number] 12/28/19 14 12/27/2013 [facility], [facility]. Unknown [id number] 12/28/19 14 12/27/2013 [facility], [facility]. Unknown [id number] 12/28/19 14 12/27/2013 [facility], [facility]. Unknown [id number] 12/28/19 14 12/27/2013 [facility], [facility]. Unknown [id number] 12/28/19 14 12/27/2013 [facility], [facility]. Unknown [id number] 12/28/19 14 12/27/2013 [facility], [facility]. Unknown [id number] 12/28/19 14 12/27/2013 [facility], [facility]. Unknown [id number] 12/28/19 14 12/27/2013 [facility], [facility]. Unknown [id number] 12/28/19 14 12/27/[address] [facility]. Unknown [id number] 12/28/19 14 12/27/[address] [facility]. Unknown [id number] 12/28/19 14 12/27/[address] [facility]. ear wash [id number] 01/01/20 14 12/31/[address] [facility]. ear wash [id number] 01/01/20 14 12/31/[address] [facility]. ear wash [id number] 01/01/20 14 12/31/[address] [facility]. ear wash [id number] 01/01/20 14 12/31/[address] [facility]. ear wash [id number] 01/01/20 14 12/31/[address] [facility]. ear wash [id number] 01/01/20 14 12/31/[address] [facility]. ear wash [id number] 01/01/20 14 12/31/[address] [facility]. ear wash [id number] 01/01/20 14 12/31/[address] [facility]. ear wash [id number] 01/01/20 14 12/31/[address] [facility]. ear wash [id number] 01/01/20 14 12/31/[address] [facility]. ear wash [id number] 01/01/20 14 12/31/[address] [facility]. Unknown [id number] 01/01/20 14 12/31/[address] [facility]. Unknown [id number] 01/01/20 14 12/31/[address] [facility]. Unknown [id number] 01/01/20 14 12/31/[address] [facility] [facility] Unknown [id number] 01/01/20 14 12/31/[address] [facility]. Unknown [id number] 01/01/20 14 12/31/[address] [facility]. Unknown [id number] 01/01/20 14 12/31/[address] [facility]. Unknown [id number] 01/01/20 14 12/31/[address] [facility]. Unknown [id number] 01/01/20 14 12/31/[address] [facility]. Unknown [id number] 01/01/20 14 12/31/[address] [facility]. Unknown [id number] 01/01/20 14 12/31/[address] [facility]. Unknown [id number] 01/01/20 14 12/31/[address] [facility]. Unknown [id number] 01/01/20 14 12/31/[address] [facility]. Unknown [id number] 01/01/20 14 12/31/[address] [facility]. Unknown [id number] 01/01/20 14 12/31/[address] [facility]. Unknown [id number] 01/01/20 14 12/31/[address] [facility]. refill request for Losartan Potassium 25 [id number] 02/24/2014 02/24/[address] [facility]. refill request for Losartan Potassium 25 [id number] 02/24/2014 02/24/[address] [facility]. refill request for Losartan Potassium 25 [id number] 02/24/2014 02/24/[address] [facility]. refill request for Losartan Potassium 25 [id number] 02/24/2014 02/24/[address] [facility]. refill request for Losartan Potassium 25 [id number] 02/24/2014 02/24/[address] [facility]. refill request for Losartan Potassium 25 [id number] 02/24/2014 02/24/[address] [facility]. resend fabi request [id number] 02/24/2014 02/24/[address] [facility]. resend fabi request [id number] 02/24/2014 02/24/[address] [facility]. [facility] [id number] 02/24/2014 02/24/[address] [facility]. [facility] [id number] 02/24/2014 02/24/[address] [facility]. resend fabi request [id number] 02/24/2014 02/24/[address] [facility]. resend fabi request [id number] 02/24/2014 02/24/[address] [facility]. refill request for Losartan Potassium 25 [id number] 02/24/2014 02/24/[address] [facility]. refill request for Losartan Potassium 25 [id number] 02/24/2014 02/24/[address] [facility]. refill request for Losartan Potassium 25 [id number] 02/24/2014 02/24/[address] [facility]. refill request for Losartan Potassium 25 [id number] 02/24/2014 02/24/[address] [facility]. refill request for Losartan Potassium 25 [id number] 02/24/2014 02/24/[address] [facility]. refill request for Losartan Potassium 25 [id number] 02/24/2014 02/24/[address] [facility]. refill request for Losartan Potassium 25 [id number] 02/24/2014 02/24/[address] [facility]. resend fabi request [id number] 02/24/2014 02/24/[address] [facility]. resend fabi request [id number] 02/24/2014 02/24/[address] [facility]. resend fabi request [id number] 02/24/2014 02/24/[address] [facility]. resend fabi request [id number] 02/24/2014 02/24/[address] [facility]. resend fabi request [id number] 02/24/2014 02/24/[address] [facility]. resend fabi request [id number] 02/24/2014 02/24/[address] [facility]. resend jayleenmian request [id number] 02/24/2014 02/24/[address] [facility]. lab orders [id number] 03/12/20 14 03/12/[address] [facility]. lab orders [id number] 03/12/20 14 03/12/[address] [facility]. lab orders [id number] 03/12/20 14 03/12/[address] [facility]. lab orders [id number] 03/12/20 14 03/12/[address] [facility]. lab orders [id number] 03/12/20 14 03/12/[address] [facility]. lab orders [id number] 03/12/20 14 03/12/[address] [facility]. lab orders [id number] 03/12/20 14 03/12/[address] [facility]. lab orders [id number] 03/12/20 14 03/12/[address] [facility]. lab orders [id number] 03/12/20 14 03/12/[address] [facility]. lab orders [id number] 03/12/20 14 03/12/[address] [facility]. lab orders [id number] 03/12/20 14 03/12/[address] [facility]. lab orders [id number] 03/24/20 14 03/24/[address] [facility]. lab orders [id number] 03/24/20 14 03/24/[address] [facility]. lab orders [id number] 03/24/20 14 03/24/[address] [facility]. lab orders [id number] 03/24/20 14 03/24/[address] [facility]. lab orders [id number] 03/24/20 14 03/24/[address] [facility]. lab orders [id number] 03/24/20 14 03/24/[address] [facility]. lab orders [id number] 03/24/20 14 03/24/[address] [facility]. lab orders [id number] 03/24/20 14 03/24/[address] [facility]. lab orders [id number] 03/24/20 14 03/24/[address] [facility]. lab orders [id number] 03/24/20 14 03/24/[address] [facility]. lab orders [id number] 03/24/20 14 03/24/[address] [facility]. BW f/u high a1c [id number] 04/02/2014 04/02/[address] [facility]. BW f/u high a1c [id number] 04/02/2014 04/02/[address] [facility]. BW f/u high a1c [id number]- [id number] 04/02/2014 04/02/[address] [facility]. BW f/u high a1c [id number] 04/02/2014 04/02/[address] [facility]. BW f/u high a1c [id number] 04/02/2014 04/02/[address] [facility]. BW f/u high a1c [id number] 04/02/2014 04/02/[address] [facility]. BW f/u high a1c [id number] 04/02/2014 04/02/2014 [facility]. BW f/u high a1c [id number] 04/02/2014 04/02/2014 [facility]. Unknown [id number] 06/26/19 15 06/25/2014 [facility]. Unknown [id number] 06/26/19 15 06/25/2014 [facility]. Unknown [id number] 06/26/19 15 06/25/2014 [facility]. Unknown [id number] 06/26/19 15 06/25/2014 [facility]. Unknown [id number] 06/26/19 15 06/25/2014 [facility]. Unknown [id number] 06/26/19 15 06/25/2014 [facility]. Unknown [id number] 06/26/19 15 06/25/2014 [facility]. Unknown [id number] 06/26/19 15 06/25/2014 [facility]. 3 Month F/U [id number] 07/03/19 15 07/02/2014 [facility] 3 Month F/U [id number] 07/03/19 15 07/02/2014 [facility] 3 Month F/U [id number] 07/03/19 15 07/02/2014 [facility] 3 Month F/U [id number] 07/03/19 15 07/02/2014 [facility] 3 Month F/U [id number] 07/03/19 15 07/02/2014 [facility] 3 Month F/U [id number] 07/03/19 15 07/02/2014 [facility] 3 Month F/U [id number] 07/03/19 15 07/02/2014 [facility] 3 Month F/U [id number] 07/03/19 15 07/02/2014 [facility] 3 Month F/U [id number] 10/02/19 15 10/01/2014 [facility] 3 Month F/U [id number] 10/02/19 15 10/01/2014 [facility] 3 Month F/U [id number] 10/02/19 15 10/01/2014 [facility]. 3 Month F/U [id number] 10/02/19 15 10/01/2014 [facility]. 3 Month F/U [id number] 10/02/19 15 10/01/2014 [facility]. 3 Month F/U [id number] [id number] 10/02/19 15 10/01/2014 [facility]. 3 Month F/U [id number] 10/02/19 15 10/01/2014 [facility]. 3 Month F/U [id number] 10/02/19 15 10/01/[address] [facility]. lab orders [id number] 04/03/19 16 04/03/[address] [facility]. lab orders [id number] 04/03/19 16 04/03/[address] [facility]. lab orders [id number] 04/03/19 16 04/03/[address] [facility]. lab orders [id number] 04/03/19 16 04/03/[address] [facility]. lab orders [id number] 04/03/19 16 04/03/[address] [facility]. lab orders [id number] 04/03/19 16 04/03/[address] [facility]. lab orders [id number] 04/03/19 16 04/03/[address] [facility]. right ear wash [id number] 05/27/2015 05/27/[address] [facility]. right ear wash [id number] 05/27/2015 05/27/[address] [facility]. right ear wash [id number] 05/27/2015 05/27/[address] [facility]. Refill [id number] 07/30/19 16 07/30/[address] [facility]. Refill [id number] 07/30/19 16 07/30/[address] [facility]. Refill [id number] 07/30/19 16 07/30/[address] [facility]. Refill [id number] 07/30/19 16 07/30/[address] [facility]. Refill [id number] 07/30/19 16 07/30/[address] [facility]. Refill [id number] 07/30/19 16 07/30/[address] [facility]. Sick Visit [id number] 08/03/19 16 08/03/[address] [facility]. Sick Visit [id number] 08/03/19 16 08/03/[address] [facility]. Sick Visit [id number] 08/03/19 16 08/03/[address] [facility]. Sick Visit [id number] 08/03/19 16 08/03/[address] [facility]. 1 week f;u [id number] 08/10/19 16 08/10/[address] [facility]. 1 week f;u [id number] 08/10/19 16 08/10/[address] [facility]. 1 week f;u [id number]- [id number] 08/10/19 16 08/10/[address] [facility]. 1 week f;u [id number]- [id number] 08/10/19 16 08/10/[address] [facility]. 1 week f;u [id number] 08/10/19 16 08/10/[address] [facility]. stomach swelling [id number] 11/17/2015 11/17/[address] [facility]. stomach swelling [id number] -[id number] 11/17/2015 11/17/2015 [facility]. f/u [id number] 02/24/20 16 02/24/2016 [facility] Procedures No Data Provided for This Section Assessment and Plan No Data Provided for This Section Plan of Care No Data Provided for This Section Social History Social History Date Source Social History ElementQualifiersDate Rep orted Tobacco Use: . Are you a: former smoker, Yes, Year Q uit 2013Feb 24, 2016 Do you drink alcohol? . Status: No Feb 24, 2016 02/24/2016 [facility] Family History Value Date S ource QualifierDescriptionCommentDate Reported Maternal Grandmother Comment not available Feb [...] Other: Comment not available Feb 24, 2016 03/01/2016 [facility] QualifierDescriptionCommentDate Reported Maternal Grandmother Comment not available Nov [...] Other: Comment not available Nov 17, 2015 01/06/2016 [facility] QualifierDescriptionCommentDate Reported Maternal Grandmother Comment not available August [...] Other: Comment not available August 10, 2015 08/27/2015 [facility] QualifierDescriptionCommentDate Reported Maternal Grandmother Comment not available August [...] Other: Comment not available August 10, 2015 08/23/2015 [facility] QualifierDescriptionCommentDate Reported Maternal Grandmother Comment not available August [...] Other: Comment not available August 10, 2015 08/23/2015 [facility] QualifierDescriptionCommentDate Reported Father brain cancer October 16, 2013 10/26/2013 [facility] QualifierDescriptionCommentDate Reported Father brain cancer July 10, 2013 07/18/2013 [facility] Advance Directives No Data Provided for This Section Functional Status No Data Provided for This Section
--- OUTSIDE RECORDS SUMMARY | 2019-08-02 06:51 | XMS REPORT ---
Author Author Marisol Jeff Organization [employer] Address Unknown Phone Unavailable Care Team Providers Care Glaze Wiper Name Role Phone Tony Jeff CP Unavailable Allergies No Known Allergies Problems Problem Type Condition Code Onset Dates Condition Statu s Problem Hyperglycemia, unspecified R73.9 A ctive Problem Essential (primary) hypertension I10 Active Problem Atherosclerosis of aorta I70.0 Act shon Problem Malignant neoplasm of prostate C61 Active Problem Annual visit for general sarath lt medical examination with abnormal findings Z00.01 Active Problem Peripheral vascular disease I73.9 Active Problem Other hyperlipidemia E78.49 Active Problem Essential hypertension I10 Activ e Problem Benign prostatic hyperplasia without lower urina ry tract symptoms N40.0 Active Problem Other hyperlipidemia E78.4 Active Problem Claudication in peripheral vascular disease I73.9 Active Problem Prediabetes R73.03 Active Medications No Known Medications Results No Known Results Summary Purpose [employer] Submission
--- OUTSIDE RECORDS SUMMARY | 2019-08-02 06:51 | XMS REPORT ---
Author Author Marisol Jeff Organization [employer] Address Unknown Phone Unavailable Care Team Providers Care Sales Office Administrator Name Role Phone Tony Jeff CP Unavailable [...] Active Problem Essential (primary) hypertension I10 Active Medications Medication Code System Code Instructions Start Date End Date Status Dosage Amlodipine Besylate [facility] [id number] 5 MG Orally Once a day Active 1 tablet Results No Known Results Summary Purpose [employer] Submission
[2019-08-02 11:30] VITALS: BP 157/84
--- NOTE | 2019-08-05 01:12 | Operative Report ---
DATE OF PROCEDURE: SURGEON: Gee Lewis MD PREOPERATIVE DIAGNOSES: 1. Bilateral nephrolithiasis. 2. Microhematuria. POSTOPERATIVE DIAGNOSES: 1. Bilateral nephrolithiasis. 2. Microhematuria. 3. Bulbar urethral stricture. OPERATIONS PERFORMED: 1. Staged left-sided extracorporeal shockwave lithotripsy. 2. Cystourethroscopy with calibration and dilation of urethral stricture (separate procedure performed for the diagnosis of stricture). 3. Cystourethroscopy with bilateral ureteral catheterization and retrograde ureteropyelography (separate procedure performed for microhematuria). 4. Interpretation of retrograde ureteropyelography, no radiologist present. ANESTHESIA: General. COMPLICATIONS: None. CLINICAL SUMMARY: Marisol Kendall is an 84-year-old man with recurrent persistent urolithiasis. He was brought for a staged procedure. He is aware of the risks of bleeding, infection, injury to adjacent structures, need for additional procedures and elected to proceed. OPERATIVE PROCEDURE IN DETAIL: Informed consent was verified Rosanne Kendall was properly identified and taken to the operating room, placed on the lithotripsy table in supine position. Anesthesia was then uneventfully begun. The patient was then carefully and gently repositioned in dorsal lithotomy position. This is a nonelective procedure. The patient has persistent stones that actually have grown and this procedure should be performed despite the COVID-19 emergency. The patient has tested negative. He is aware of the COVID risks versus the risk of growing stone burden requiring more procedures. He is aware of these risks and elected to proceed. OPERATIVE PROCEDURE IN DETAIL: Informed consent was verified, Marisol Kendall was properly identified and taken to the operative room and placed on the lithotripsy table in supine position. Anesthesia was uneventfully begun. The patient's left lower pole cluster of kidney stones were localized with biplanar fluoroscopy. A total of 3000 shocks were delivered with fragmentation noted. The patient was then carefully and gently repositioned in the dorsal lithotomy position with all pressure points well padded. His genitalia were prepared and draped in usual sterile fashion. The cystoscope sheath with the visual obturator in place was atraumatically inserted. The patient's urethra was guided down the unremarkable distal urethra to the bulbar region, which showed blanched mucosa and a stricture. We calibrated this pressure stricture at approximately 14 to 16-Chinese in size and gently dilated to 21-Chinese in size utilizing the visual obturator and cystoscope sheath. We then went through the normal sphincteric region into the patient's prostate bed, which was status post transurethral prostatectomy with some residual tissue at the apical region causing some degree of visual obstruction. The most of the prostate bed was open. We entered the patient's bladder. Panendoscopy revealed some blanched mucosa in the distal portion of the bladder. Normally positioned configured ureteral orifices were identified the background of the blanched trigone. There were grade 2 trabeculations noted. An 8-Chinese catheter was used to cannulate each ureter and retrograde ureteropyelography was performed. Interpretation of retrograde ureteropyelography contrast was instilled in retrograde fashion bilaterally. The left lower pole calyx was significant for filling defects corresponding to stone debris and blood clots. There was no hydronephrosis. No obstructive drainage was observed fluoroscopically. The right side exhibited calcification with correspondence to the upper pole calyx upon contrast injection. There were no suspicious mucosal lesions. Unobstructed drainage was observed bilaterally fluoroscopically. The patient's bladder was drained. Cystoscope was withdrawn. The patient was uneventfully reversed from anesthesia and taken to recovery in stable condition. There were no complications to the procedure. He tolerated the procedure well. Plans will be to return the patient to the operating room for a right ESWL in the near future. MD ROXI Kimbrough/MACARENAL /[id number]
== END | disposition home or self-care (01) ==
LOC: OR 06:38
PROVIDERS: ATTEND Urology
DX: N20.0 Calculus of kidney (principal); N35.912 Unspecified bulbous urethral stricture, male; N32.89 Other specified disorders of bladder; Z98.890 Other specified postprocedural states; N13.8 Other obstructive and reflux uropathy; I10 Essential (primary) hypertension; I71.4 Abdominal aortic aneurysm, without rupture; I65.29 Occlusion and stenosis of unspecified carotid artery; Z88.8 Allergy status to other drugs, medicaments and biological substances; Z01.810 Encounter for preprocedural cardiovascular examination; Z01.812 Encounter for preprocedural laboratory examination; Z01.818 Encounter for other preprocedural examination; Z11.59 Encounter for screening for other viral diseases; Z79.82 Long term (current) use of aspirin; Z79.02 Long term (current) use of antithrombotics/antiplatelets
CPT/HCPCS: 36415; 50590; 52281; 74018; 85025; 87635; 93005; J0696; J1100; J2001; J2405; J2704; Q9967

== ENCOUNTER → 2019-09-13 | Day surgery (SDC) | payer MEDICARE, OTHER ==
[2019-09-10 16:09] LABS: BASOPHILS # (AUTO) 0.1 (0.0-0.1); BASOPHILS % 1.1 % (0.0-1.0); EOSINOPHILS # (AUTO) 0.5 (0.0-0.4); EOSINOPHILS % 5.9 % (0.0-6.0); HEMATOCRIT 37.7 % (38.2-49.6); HEMOGLOBIN 12.4 g/dL (14.0-18.0); LYMPHOCYTES # (AUTO) 2.5 (1.0-3.2); LYMPHOCYTES % 27.5 % (18.0-39.1); MEAN CORPUSCULAR HEMOGLOBIN 31.8 pg (28-32); MEAN CORPUSCULAR HGB CONC 32.9 g/dL (31-35); MEAN CORPUSCULAR VOLUME 96.7 fL (81-99); MONOCYTES # (AUTO) 1.2 (0.2-0.8); MONOCYTES % 12.7 % (4.4-11.3); NEUTROPHILS # (AUTO) 4.8 (2.1-6.9); NEUTROPHILS % 52.6 % (38.7-80.0); PLATELET COUNT 247 x10e3/uL (140-360)
--- NOTE | 2019-09-10 16:10 | Diagnostic Imaging Report ---
Exam: KUB - 2 views Indication: Preoperative Comparison: KUB of 07/30/2019 Findings: Again seen are renal calculi at the right upper pole measuring 7 mm and left lower pole measuring 6 mm. This is not significantly changed from the prior KUB of 07/30/2019. Nonobstructive bowel gas pattern. No free air. No acute osseous injury. Degenerative changes of the visualized spine and both hip joints. Phleboliths in the pelvis. Left iliac vascular stent. Impression: Unchanged bilateral renal calculi. No new radiographically apparent renal calculi. Signed by: Adrián Escalante MD on 09/10/2019 4:07 PM
[~2019-09-13] MED LIST changes: -B&O 60MG R/S 60 MG SUPP PR ONE; -DEXAMETHASONE SOD PHOS INJ 4 MG/ML VIAL ONE; +EPHEDRINE SULFATE INJ 50 MG/ML VIAL ONE; +FENTANYL CITRATE/PF 100MCG/2 ML INJ ONE; -IOPAMIDOL 300MG/ML 50ML INFUS..BTL IV ONE
[2019-09-13 11:15] VITALS: BP 153/79
--- NOTE | 2019-10-28 00:30 | Operative Report ---
DATE OF PROCEDURE: 09/13/2019 SURGEON: Gee Lewis MD PREOPERATIVE DIAGNOSIS: Right nephrolithiasis. POSTOPERATIVE DIAGNOSIS: Right nephrolithiasis. OPERATIONS PERFORMED: 1. Staged right-sided extracorporeal shockwave lithotripsy. 2. Supervision of fluoroscopy, no radiologist present. ANESTHESIA: General. COMPLICATIONS: None. CLINICAL SUMMARY: Marisol Kendall is an 84-year-old man with recurrent bilateral nephrolithiasis. He is brought for the above procedure in a staged fashion. He is aware of the risks of bleeding, infection, injury to adjacent structures, need for additional procedures and elected to proceed. OPERATIVE PROCEDURE IN DETAIL: Informed consent was verified. Marisol Kendall was properly identified, taken to the operating room, placed in the lithotripsy table in supine position. Anesthesia was uneventfully begun. The patient's right upper pole nephrolithiasis was localized with biplanar fluoroscopy. A total of 3000 shocks were delivered with fragmentation noted. The patient was then uneventfully reversed from anesthesia and taken to recovery room in stable condition. There were no complications of the procedure. He tolerated the procedure well. PLAN: Plans will be to return the patient to the operating room for a left versus right ESWL. Gee Lewis MD [facility]/MODL /[id number]
== END | disposition home or self-care (01) ==
LOC: OR 06:50
PROVIDERS: ATTEND Urology
DX: N20.0 Calculus of kidney (principal); Z88.8 Allergy status to other drugs, medicaments and biological substances; I10 Essential (primary) hypertension; Z11.59 Encounter for screening for other viral diseases; Z01.818 Encounter for other preprocedural examination
CPT/HCPCS: 36415; 50590; 74018; 85025; 87635; J0696; J2001; J2405; J2704; J3010; U0002

== ENCOUNTER → 2019-10-24 | Outpatient (CLI) | payer MEDICARE, OTHER ==
[~2019-10-24] MED LIST changes: -CEFTRIAXONE SOD 1 GM/NS 50 ML 50 ML IV ONE; -EPHEDRINE SULFATE INJ 50 MG/ML VIAL ONE; -FENTANYL CITRATE/PF 100MCG/2 ML INJ ONE; -LIDOCAINE HCL 2% LOCAL INJ 5 ML SDV VIAL INJ ONE; -ONDANSETRON HCL INJ 2MG/ML 2ML 2 MG/ML VIAL ONE; -PROPOFOL IV EMULSION 10 MG/ML 20 ML VIAL ONE; -SEVOFLURANE INHAL SOLN 250 ML PEN BTL ONE
--- NOTE | 2019-10-24 10:42 | Diagnostic Imaging Report ---
X-ray abdomen 2 views History: Stones Findings: Multiple calcific densities overlying the inferior pole of the left kidney and midpole of the right kidney suggestive of renal calculi. No density seen along the course of the ureter. Multiple pelvic calcific densities are seen. These might be vascular calcifications and/or phleboliths. Incidental findings: 5 lumbar type vertebrae. No bowel obstruction. Left common iliac artery stent. Curvilinear calcific density between L3 and L4 level. It might represent a calcified abdominal aortic aneurysm. Impression: Multiple bilateral renal calculi suspected with no significant change compared with the previous exam. Possible abdominal aortic aneurysm. Signed by: Kurtis Nelson MD on 10/24/2019 10:38 AM
== END ==
LOC: RAD 09:55
PROVIDERS: ATTEND Urology
DX: N20.0 Calculus of kidney (principal)
CPT/HCPCS: 74018

== ENCOUNTER → 2020-04-16 | Outpatient (CLI) | payer MEDICARE, OTHER | LOC: CT 16:09 | PROVIDERS: ATTEND Urology | DX: N20.0 Calculus of kidney (principal) | CPT/HCPCS: 74176 ==

== ENCOUNTER → 2020-05-19 | Outpatient (CLI) | payer MEDICARE, OTHER ==
[~2020-05-19] MED LIST changes: +AMLODIPINE-VAL1 EACH PO; +METOPROLOL SUCC50 MG PO
[2020-05-19 11:07] LABS: BASOPHILS # (AUTO) 0.1 (0.0-0.1); BASOPHILS % 0.8 % (0.0-1.0); EOSINOPHILS # (AUTO) 0.3 (0.0-0.4); EOSINOPHILS % 3.7 % (0.0-6.0); HEMATOCRIT 38.2 % (38.2-49.6); HEMOGLOBIN 12.3 g/dL (14.0-18.0); LYMPHOCYTES # (AUTO) 1.8 (1.0-3.2); LYMPHOCYTES % 21.4 % (18.0-39.1); MEAN CORPUSCULAR HEMOGLOBIN 30.8 pg (28-32); MEAN CORPUSCULAR HGB CONC 32.2 g/dL (31-35); MEAN CORPUSCULAR VOLUME 95.5 fL (81-99); MONOCYTES # (AUTO) 1.1 (0.2-0.8); MONOCYTES % 12.6 % (4.4-11.3); NEUTROPHILS # (AUTO) 5.2 (2.1-6.9); NEUTROPHILS % 60.9 % (38.7-80.0); PLATELET COUNT 239 x10e3/uL (140-360); RED CELL DISTRIBUTION WIDTH 13.1 % (11.7-14.4)
[2020-05-19 11:29] LABS: ANION GAP 13.3 mmol/L (8-16); CALCIUM 9.8 mg/dL (8.4-10.2); CREATININE, SERUM 1.51 mg/dL (0.72-1.25); POTASSIUM 4.3 mmol/L (3.5-5.1)
== END ==
LOC: DX 21:46 → EDSTATUS 05-22 07:00
PROVIDERS: ATTEND Urology
DX: Z01.812 Encounter for preprocedural laboratory examination (principal); Z20.822 Contact with and (suspected) exposure to COVID-19; Z01.818 Encounter for other preprocedural examination; N20.0 Calculus of kidney
CPT/HCPCS: 36415; 71046; 74018; 80048; 85025; 93005; U0002

== ENCOUNTER → 2020-06-19 | Day surgery (SDC) | payer MEDICARE, OTHER ==
[2020-06-16 10:06] LABS: BASOPHILS # (AUTO) 0.1 (0.0-0.1); EOSINOPHILS # (AUTO) 0.3 (0.0-0.4); EOSINOPHILS % 3.2 % (0.0-6.0); HEMATOCRIT 39.5 % (38.2-49.6); HEMOGLOBIN 12.8 g/dL (14.0-18.0); LYMPHOCYTES # (AUTO) 1.8 (1.0-3.2); LYMPHOCYTES % 21.8 % (18.0-39.1); MEAN CORPUSCULAR HEMOGLOBIN 31.4 pg (28-32); MEAN CORPUSCULAR HGB CONC 32.4 g/dL (31-35); MEAN CORPUSCULAR VOLUME 96.8 fL (81-99); MONOCYTES # (AUTO) 0.9 (0.2-0.8); MONOCYTES % 10.7 % (4.4-11.3); NEUTROPHILS # (AUTO) 5.2 (2.1-6.9); NEUTROPHILS % 63.1 % (38.7-80.0); PLATELET COUNT 245 x10e3/uL (140-360); RED BLOOD COUNT 4.08 x10e6/uL (4.3-5.7); RED CELL DISTRIBUTION WIDTH 13.5 % (11.7-14.4)
[2020-06-16 10:45] LABS: ANION GAP 14.5 mmol/L (8-16); CALCIUM 10.2 mg/dL (8.4-10.2); CREATININE, SERUM 1.91 mg/dL (0.72-1.25); POTASSIUM 4.5 mmol/L (3.5-5.1)
[~2020-06-19] MED LIST changes: +B&O 60MG R/S 60 MG SUPP PR ONE; +CEFTRIAXONE SOD 1 GM VIAL ONE; +DEXAMETHASONE SOD PHOS INJ 4 MG/ML VIAL ONE; +EPHEDRINE SULFATE INJ 50 MG/ML VIAL ONE; +FENTANYL CITRATE/PF 100MCG/2 ML INJ ONE; +IOPAMIDOL 300MG/ML 50ML INFUS..BTL IV ONE; +LIDOCAINE HCL 2% LOCAL INJ 5 ML SDV VIAL INJ ONE; +ONDANSETRON HCL INJ 2MG/ML 2ML 2 MG/ML VIAL ONE; +PROPOFOL IV EMULSION 10 MG/ML 20 ML VIAL ONE; +SEVOFLURANE INHAL SOLN 250 ML PEN BTL ONE; +SODIUM CHLORIDE 0.9% 50ML 50 ML ONE
[2020-06-19 10:05] VITALS: BP 141/62
== END | disposition home or self-care (01) ==
LOC: OR 05:51
PROVIDERS: ATTEND Urology
DX: N20.0 Calculus of kidney (principal); N35.912 Unspecified bulbous urethral stricture, male; I12.9 Hypertensive chronic kidney disease with stage 1 through stage 4 chronic kidney disease, or unspecified chronic kidney disease; N18.9 Chronic kidney disease, unspecified; N32.89 Other specified disorders of bladder; F41.9 Anxiety disorder, unspecified; Z88.8 Allergy status to other drugs, medicaments and biological substances; Z01.812 Encounter for preprocedural laboratory examination; Z01.818 Encounter for other preprocedural examination; Z86.16 Personal history of COVID-19; Z85.46 Personal history of malignant neoplasm of prostate; Z92.3 Personal history of irradiation; Z87.891 Personal history of nicotine dependence
CPT/HCPCS: 36415; 50590; 52281; 74018; 80048; 85025; C1758; J0696; J1100; J2001; J2405; J2704; J3010; Q9967

== ENCOUNTER → 2020-10-12 | Outpatient (CLI) | payer MEDICARE, OTHER ==
[~2020-10-12] MED LIST changes: -B&O 60MG R/S 60 MG SUPP PR ONE; -CEFTRIAXONE SOD 1 GM VIAL ONE; -DEXAMETHASONE SOD PHOS INJ 4 MG/ML VIAL ONE; -EPHEDRINE SULFATE INJ 50 MG/ML VIAL ONE; -FENTANYL CITRATE/PF 100MCG/2 ML INJ ONE; -IOPAMIDOL 300MG/ML 50ML INFUS..BTL IV ONE; -LIDOCAINE HCL 2% LOCAL INJ 5 ML SDV VIAL INJ ONE; -ONDANSETRON HCL INJ 2MG/ML 2ML 2 MG/ML VIAL ONE; -PROPOFOL IV EMULSION 10 MG/ML 20 ML VIAL ONE; -SEVOFLURANE INHAL SOLN 250 ML PEN BTL ONE; -SODIUM CHLORIDE 0.9% 50ML 50 ML ONE
== END ==
LOC: RAD 11:57
PROVIDERS: ATTEND Urology
DX: N20.0 Calculus of kidney (principal)
CPT/HCPCS: 74018

== ENCOUNTER → 2021-01-14 | Outpatient (CLI) | payer MEDICARE, OTHER | LOC: RAD 11:31 | PROVIDERS: ATTEND Urology | DX: N20.0 Calculus of kidney (principal) | CPT/HCPCS: 74018 ==

== ENCOUNTER → 2021-02-05 | Day surgery (SDC) | payer MEDICARE, OTHER ==
[2021-02-03 14:16] LABS: BASOPHILS # (AUTO) 0.1 (0.0-0.1); EOSINOPHILS # (AUTO) 0.4 (0.0-0.4); EOSINOPHILS % 4.4 % (0.0-6.0); HEMATOCRIT 39.1 % (38.2-49.6); HEMOGLOBIN 12.7 g/dL (14.0-18.0); LYMPHOCYTES # (AUTO) 2.8 (1.0-3.2); LYMPHOCYTES % 28.4 % (18.0-39.1); MEAN CORPUSCULAR HEMOGLOBIN 31.6 pg (28-32); MEAN CORPUSCULAR HGB CONC 32.5 g/dL (31-35); MEAN CORPUSCULAR VOLUME 97.3 fL (81-99); MONOCYTES # (AUTO) 1.1 (0.2-0.8); MONOCYTES % 10.8 % (4.4-11.3); NEUTROPHILS # (AUTO) 5.4 (2.1-6.9); NEUTROPHILS % 54.9 % (38.7-80.0); PLATELET COUNT 221 x10e3/uL (140-360); RED BLOOD COUNT 4.02 x10e6/uL (4.3-5.7); RED CELL DISTRIBUTION WIDTH 12.9 % (11.7-14.4)
[2021-02-03 14:39] LABS: ALBUMIN/GLOBULIN RATIO 1.1 (0.8-2.0); CREATININE, SERUM 1.82 mg/dL (0.72-1.25)
[2021-02-03 14:54] LABS: POTASSIUM 4.5 mmol/L (3.5-5.1)
[2021-02-03 14:56] LABS: ANION GAP 13.5 mmol/L (8-16)
[~2021-02-05] MED LIST changes: +BELLADONNA/OPIUM 30 MG SUPP RC ONE; +CEFTRIAXONE 1 GM VIAL ONE; +FENTANYL CITRATE/PF 100MCG/2 ML INJ ONE; +IOPAMIDOL 300MG/ML 50ML INFUS..BTL IV ONE; +LIDOCAINE HCL 2% LOCAL INJ 5 ML SDV VIAL INJ ONE; +ONDANSETRON HCL INJ 2MG/ML 2ML 2 MG/ML VIAL ONE; +POVIDONE IODINE 0.05% 0.05 % ML PO ONE; +PROPOFOL IV EMULSION 10 MG/ML 20 ML VIAL ONE; +SEVOFLURANE INHAL SOLN 250 ML PEN BTL ONE; +SODIUM CHLORIDE 0.9% 50ML 50 ML ONE
[2021-02-05 10:15] VITALS: BP 107/58
== END | disposition home or self-care (01) ==
LOC: OR 05:25
PROVIDERS: ATTEND Urology
DX: N20.0 Calculus of kidney (principal); N40.1 Benign prostatic hyperplasia with lower urinary tract symptoms; N13.8 Other obstructive and reflux uropathy; I12.9 Hypertensive chronic kidney disease with stage 1 through stage 4 chronic kidney disease, or unspecified chronic kidney disease; N18.9 Chronic kidney disease, unspecified; N35.912 Unspecified bulbous urethral stricture, male; Z85.46 Personal history of malignant neoplasm of prostate; N32.89 Other specified disorders of bladder; N13.30 Unspecified hydronephrosis; N28.89 Other specified disorders of kidney and ureter; K21.9 Gastro-esophageal reflux disease without esophagitis; N28.1 Cyst of kidney, acquired; E78.5 Hyperlipidemia, unspecified; I49.1 Atrial premature depolarization; Z01.810 Encounter for preprocedural cardiovascular examination; Z01.812 Encounter for preprocedural laboratory examination; Z01.818 Encounter for other preprocedural examination; Z20.822 Contact with and (suspected) exposure to COVID-19; Z79.899 Other long term (current) drug therapy; Z92.3 Personal history of irradiation
CPT/HCPCS: 36415; 50590; 52281; 74018; 80053; 84550; 85025; 93005; C1758; J0696; J2001; J2405; J2704; J3010; Q9967; U0002

== ENCOUNTER → 2021-04-20 | Outpatient (CLI) | payer MEDICARE, OTHER ==
[~2021-04-20] MED LIST changes: -BELLADONNA/OPIUM 30 MG SUPP RC ONE; -CEFTRIAXONE 1 GM VIAL ONE; -FENTANYL CITRATE/PF 100MCG/2 ML INJ ONE; -IOPAMIDOL 300MG/ML 50ML INFUS..BTL IV ONE; -LIDOCAINE HCL 2% LOCAL INJ 5 ML SDV VIAL INJ ONE; -ONDANSETRON HCL INJ 2MG/ML 2ML 2 MG/ML VIAL ONE; -POVIDONE IODINE 0.05% 0.05 % ML PO ONE; -PROPOFOL IV EMULSION 10 MG/ML 20 ML VIAL ONE; -SEVOFLURANE INHAL SOLN 250 ML PEN BTL ONE; -SODIUM CHLORIDE 0.9% 50ML 50 ML ONE
== END ==
LOC: RAD 12:06
PROVIDERS: ATTEND Urology
DX: N20.0 Calculus of kidney (principal)
CPT/HCPCS: 74018

== ENCOUNTER → 2021-07-15 | Outpatient (CLI) | payer MEDICARE, OTHER | LOC: RAD 14:39 | PROVIDERS: ATTEND Urology | DX: N20.0 Calculus of kidney (principal) | CPT/HCPCS: 74018 ==

== ENCOUNTER → 2022-07-08 | Day surgery (SDC) | payer MEDICARE, OTHER ==
[2022-07-04 11:52] LABS: BASOPHILS # (AUTO) 0.1 (0.0-0.1); EOSINOPHILS # (AUTO) 0.3 (0.0-0.4); EOSINOPHILS % 4.3 % (0.0-6.0); HEMATOCRIT 39.5 % (38.2-49.6); HEMOGLOBIN 12.8 g/dL (14.0-18.0); LYMPHOCYTES # (AUTO) 1.9 (1.0-3.2); LYMPHOCYTES % 24.5 % (18.0-39.1); MEAN CORPUSCULAR HEMOGLOBIN 31.1 pg (28-32); MEAN CORPUSCULAR HGB CONC 32.4 g/dL (31-35); MEAN CORPUSCULAR VOLUME 95.9 fL (81-99); MONOCYTES # (AUTO) 0.9 (0.2-0.8); MONOCYTES % 11.9 % (4.4-11.3); NEUTROPHILS # (AUTO) 4.6 (2.1-6.9); PLATELET COUNT 192 x10e3/uL (140-360); RED BLOOD COUNT 4.12 x10e6/uL (4.3-5.7); RED CELL DISTRIBUTION WIDTH 13.1 % (11.7-14.4)
[2022-07-04 12:09] LABS: ANION GAP 15.5 mmol/L (8-16); CALCIUM 9.9 mg/dL (8.4-10.2); CREATININE, SERUM 1.94 mg/dL (0.72-1.25); POTASSIUM 4.5 mmol/L (3.5-5.1)
[~2022-07-08] MED LIST changes: +CEFTRIAXONE 1 GM VIAL ONE; +CRESTOR10 MG PO; +DEXAMETHASONE SOD PHOS INJ 4 MG/ML SDV ONE; +ETOMIDATE 2 MG/ML 10 ML INJ IV ONE; +FENTANYL CITRATE/PF 100MCG/2 ML INJ ONE; +IOPAMIDOL 610MG/1ML 300 MG/ML VIAL IV ONE; +LACTATED RINGER'S 1,000 ML ONE; +LIDOCAINE HCL 2% LOCAL INJ 5 ML SDV VIAL INJ ONE; +ONDANSETRON HCL INJ 2MG/ML 2ML 2 MG/ML VIAL ONE; +POVIDONE IODINE 0.05% 0.05 % ML PO ONE; +PROPOFOL IV EMULSION 10 MG/ML 20 ML VIAL ONE; +SEVOFLURANE INHAL SOLN 250 ML PEN BTL ONE
[2022-07-08 15:30] VITALS: BP 127/67
== END | disposition home or self-care (01) ==
LOC: OR 09:57
PROVIDERS: ATTEND Urology
DX: N20.0 Calculus of kidney (principal); N35.912 Unspecified bulbous urethral stricture, male; N18.9 Chronic kidney disease, unspecified; N32.89 Other specified disorders of bladder; Z98.890 Other specified postprocedural states; Z92.3 Personal history of irradiation; Z01.810 Encounter for preprocedural cardiovascular examination; Z01.812 Encounter for preprocedural laboratory examination; Z01.818 Encounter for other preprocedural examination; Z79.02 Long term (current) use of antithrombotics/antiplatelets; Z79.82 Long term (current) use of aspirin; Z79.899 Other long term (current) drug therapy
CPT/HCPCS: 36415; 50590; 52281; 71046; 74018; 80048; 84550; 85025; 93005; C1758; C1769; J0696; J1100; J2001; J2405; J2704; J3010; J7121; Q9967

== ENCOUNTER → 2022-07-22 | Day surgery (SDC) | payer MEDICARE, OTHER ==
[~2022-07-22] MED LIST changes: +EPHEDRINE SULFATE INJ 50 MG/ML VIAL ONE; -ETOMIDATE 2 MG/ML 10 ML INJ IV ONE; +FAMOTIDINE 20 MG/2 ML VIAL IV ONE; +GLYCOPYRROLATE INJ 0.2 MG/ML VIAL ONE; -IOPAMIDOL 610MG/1ML 300 MG/ML VIAL IV ONE; -SEVOFLURANE INHAL SOLN 250 ML PEN BTL ONE
[2022-07-22 11:40] VITALS: BP 121/65
== END | disposition home or self-care (01) ==
LOC: OR 06:55
PROVIDERS: ATTEND Urology
DX: N20.0 Calculus of kidney (principal); Z79.02 Long term (current) use of antithrombotics/antiplatelets; Z79.82 Long term (current) use of aspirin; Z79.899 Other long term (current) drug therapy
CPT/HCPCS: 50590; J0696; J1100; J2001; J2405; J2704; J3010; J7121